=== PATIENT | female | born 1955 | race Caucasian/White ===

== ENCOUNTER 2018-12-04 11:36 | Day surgery (SDC) | payer MEDICARE ==
[2018-12-04] MEDS ORDERED: LIDOCAINE 2% MPF 5 ML VIAL ONE (11:55)
[2018-12-04] MEDS ORDERED: TETRACAINE HCL 0.5% 4ML OPTH ONE (11:56)
[2018-12-04] MEDS ORDERED: BUPIVACAINE 0.25% PF 10 ML VIAL ONE (11:56)
[2018-12-04] MEDS ORDERED: LIDOCAINE HCL/PF 3.5% OPTH GEL ONE (11:57)
[2018-12-04] MEDS: PHENYLEPHRINE 10% OPTH 5ML ONE ×3 (12:03→12:14)
[2018-12-04] MEDS: CYCLOPENTOLATE 1% OPTH 2 ML ONE ×3 (12:03→12:14)
[2018-12-04] MEDS ORDERED: NA CHLORIDE 0.9% 500 ML ONE (12:07)
[2018-12-04] MEDS ORDERED: NS 0.9% VIAL 10 ML ONE (12:17)
[2018-12-04] MEDS: BALANCED SALT IRRIG PLAIN 500 ML BTL IRR ONE ×2 (12:31→13:17)
[2018-12-04] MEDS: EPINEPHRINE/PF 1 MG/ML AMP ONE ×2 (12:31→13:17)
[2018-12-04] MEDS: LIDOCAINE 1% MPF 2 ML AMPULE ONE ×2 (12:31→13:17)
[2018-12-04] MEDS: DUOVISC 1 KIT OPTH ONE ×2 (12:32→13:40)
[2018-12-04] MEDS: MOXIFLOXACIN HCL 10 DROPS/ML **OR USE OPTH ONE ×2 (12:32→13:46)
[2018-12-04] MEDS ORDERED: MIDAZOLAM HCL 2 MG/2 ML INJ ONE ×2 (13:14→13:59)
--- NOTE | 2018-12-04 14:16 | P.BOP ---
Preoperative diagnosis: Nuclear sclerotic cataract, narrow angles with PAS OS Postoperative diagnosis: Same Primary procedure: Phacoemulsification with IOL OS Estimated blood loss: None Anesthesia: Local (Topical with anesthesia for cataract surgery) Complications: None Implants: ZCB00 +23.5 Transferred to: Other (Day surgery) Condition: Good
[2018-12-04 14:42] VITALS: BP 115/66; TEMP 98.2; O2SAT 98
--- NOTE | 2018-12-05 01:11 | OP ---
Date of Procedure: 12/04/2018 Surgeon: Sonia Morales MD Preoperative Diagnosis: Nuclear sclerotic cataract, narrow angle and peripheral anterior synechiae, left eye. Operation Performed: Phacoemulsification with intraocular lens implant, left eye. Anesthesia: Topical anesthesia with anesthesia per cataract surgery. Complications: None. Description Of Procedure: In the operating room the patient was prepped and draped in the usual ster ile fashion for ophthalmic surgery. A lid speculum was placed in the left eye. Two paracentesis sit es were made superiorly and inferiorly in the limbal cornea. Viscoat was placed in the anterior mehul swathi and a crescent blade was used to make a corneal groove and tunnel, and a keratome was used to ent er the anterior chamber. Provisc was placed in the anterior chamber and a 360 degree capsulotomy was performed with a cystitome. The lens was hydrodissected with BSS and rotated freely. The lens was removed with a stop and chop technique. 6.79 phaco CDE was used to remove the lens. Residual cortex was removed with the irrigation and aspiration. Provisc was placed in the capsular bag. A ZCB00 +2 3.5 lens was placed in the capsular bag without complications. Irrigation and aspiration was used to remove residual viscoelastic. The paracentesis sites were hydrated with BSS. The wound and paracen tesis sites were inspected and found to be watertight. Vigamox 0.07 cc was placed intracamerally at the end of the procedure. The eye was irrigated with balanced salt solution. The eye was patched wi th a soft cotton patch and Massey metal shield. The patient was returned to day surgery in good condition. Comments: Akten was placed in the eye in day surgery and irrigated out of the eye with BSS in the OR . Preservative-free 1% lidocaine was placed in the anterior chamber prior to Viscoat. One 10-0 nylo n suture was placed in the wound at the end of the procedure. Discharge Instructions: Ms. Chery is discharged to home in good condition and is to follow up leah Morales in the morning. SEAMUS/MODL Voice ID: [id number] Report ID: [id number]
== END 2018-12-04 14:25 | disposition home or self-care (01) ==
LOC: OR 11:36
PROVIDERS: ATTEND Ophthalmology Retina Specialist
PROC: 08RK3JZ Replacement of Left Lens with Synthetic Substitute, Percutaneous Approach (ICD-10-PCS; principal; 2018-12-04 11:30)
DX: H25.12 Age-related nuclear cataract, left eye (principal); H40.24 Residual stage of angle-closure glaucoma; E11.9 Type 2 diabetes mellitus without complications; E07.9 Disorder of thyroid, unspecified; I10 Essential (primary) hypertension; F32.9 Major depressive disorder, single episode, unspecified; Z79.84 Long term (current) use of oral hypoglycemic drugs; Z79.899 Other long term (current) drug therapy; Z86.19 Personal history of other infectious and parasitic diseases
CPT/HCPCS: 66984; 82962; J0171; J2250 ×2; J2001

== ENCOUNTER 2022-07-26 13:13 | Emergency (ER) | payer OTHER ==
--- OUTSIDE RECORDS SUMMARY | 2022-07-26 13:18 | XMS REPORT | Continuity of Care Document ---
:1955 Author Organization [facility] t Address [address] [place] [address] Care Team Providers Name Role Phone Joanne Tony Hawkins Primary Care Physician Elmer Pennington Attending Clinician Miley Hernandez MD Attending Clinician MILEY HERNANDEZ Attending Clinician Unavailable Doctor Unassigned, [place] Attending Clinician Unavailable Pob, [facility] Main Attending Clinician Unavailable Payers Payer Name Policy Type Policy Number Effective Date Expiration Date S ourtheodore Problems Condition Condition Condition Status Onset Resolution Last Treating Co mments Source Name Details Category Date Date Treatment Clinician Date Obesity Obesity Disease Active Univers (BMI (BMI 7-13 ity of 30-39.9) 30-39.9) 00:00: [place] 00 Medical Branch Closed Closed Disease Active Univers fracture fracture 7-13 ity of of left of left 00:00: [place] clavicle clavicle 00 Medica l Branch Lumbar Lumbar Disease Active Univers transverse transverse 7-13 it y of process process 00:00: [place] fracture, fracture, 00 Medi ambrose closed, closed, Branch initial initial encounter encounter Closed Closed Disease Active Univers fracture fracture 7-13 it[place] of of [place] rib [place] right of right 00 Medica l side side Branch Trauma Trauma Disease Active Univers 7-12 ity of 00:00: [place] [address] Medical Branch Allergies, Adverse Reactions, Alerts Allergy Allergy Status Severity Reaction(s) Onset Inactive Treating Comm ents Source Name Type Date Date Clinician HYDROCOD DRUG Active N/V Univers ONE INGREDI 7-12 ity of 00:00: [place] 00 Medical Branch SULFA Drug Active N/V Univers (SULFONA Class 7-12 ity of MIDE 00:00: [place] ANTIBIOT 00 Medical ICS) Branch Sulfa Propensi Active Nausea Univers (Sulfona ty to and/or 712 ity of mide adverse Vomiting 00:00: [place] Antibiot reaction 00 Medica l ics) s Branch Hydrocod Propensi Active Nausea Univer s one ty to and/or 7-12 ity of adverse Vomiting 00:00: [place] reaction 00 Medical s Branch Sulfa Propensi Active Nausea Univers (Sulfona ty to and/or 12 ity of mide adverse Vomiting 00:00: [place] Antibiot reaction 00 Medica l ics) s Branch Social History Social Habit Start Date Stop Date Quantity Comments Source Exposure to Not sure [facility] SARS-CoV-2 [facility] (event) [place] Tobacco use and 2017-01-26 2017-01-26 Smokeless tobacco Un iversity of exposure 00:00:00 00:00:00 non-user [facility] Sex Assigned At [birth year] Universit y of 00:00:00 00:00:00 [facility] Smoking Status Start Date Stop Date Source Never smoked tobacco [facility] Medications Ordered Filled Start Stop Current Ordering Indication Dosage Frequency Signature Comments Components Source Medication Medication Date Date Medication? Clinician (SIG) Name Name DICLOFENAC Yes [id number] TAKE 1 Univers 75 mg EC 8-11 TABLET BY ity of tablet 00:00: MOUTH 00 TWICE Medical DAILY WITH Branch MEALS DICLOFENAC 0 Yes [id number] TAKE 1 Univers 75 mg EC 5-31 TABLET BY ity of tablet 00:00: MOUTH 00 TWICE Medical DAILY WITH Branch MEALS DICLOFENAC 2021- No [id number] TAKE 1 Univers 75 mg EC 5-31 08-11 TABLET BY ity o f tablet 00:00: 00:00 MOUTH [place] 00 :00 TWICE Medical DAILY WITH Branch MEALS DICLOFENAC 2021-0 Yes [id number] TAKE 1 Univers 75 mg EC 4-12 TABLET BY ity of tablet 00:00: MOUTH [place] 00 TWICE Medical DAILY WITH Branch MEALS DICLOFENAC 2021- No [id number] TAKE 1 Univers 75 mg EC 4-12 05-31 TABLET BY ity o f tablet 00:00: 00:00 MOUTH [place] 00 :00 TWICE Medical DAILY WITH Branch MEALS diclofenac 2020-07 Yes 75mg Take 1 Unive rs 75 mg EC 2-07 tablet by ity of tablet 00:00: mouth 2 [place] (two) Medical times Branch daily with meals. diclofenac 2020-07 Yes 75mg Take 1 Unive rs 75 mg EC 2-07 tablet by ity of tablet 00:00: mouth 2 [place] (two) Medical times Branch daily with meals. diclofenac 2020-07- No 75mg Take 1 Univ ers 75 mg EC 2- 04-12 tablet by ity o f tablet 00:00: 00:00 mouth 2 [place] 00 :00 (two) Medical times Branch daily with meals. rosuvastati Yes 10mg Take 10 mg Univers n (CRESTOR) 7-13 by mouth ity of 10 mg 17:19: at [place] [address] bedtime. Medical Branch POTASSIUM-9 Yes 10mg Take 10 mg Univers 9 ORAL 7-13 by mouth ity of 17:19: daily. [address] Branch FEXOFENADIN Yes 10mg Take 10 mg Univers E HCL 7-13 by mouth ity of (PAGE 17:19: daily. [place] [address] Medical Branch metFORMIN Yes 850mg Take 850 Uni vers 850 mg 7-13 mg by ity of tablet 17:19: mouth 2 [place] [address] (two) Medical times Branch daily with meals. glipiZIDE Yes 10mg Take 10 mg Un esther 10 mg 7-13 by mouth 2 ity of tablet 17:19: (two) [place] [address] times Medical daily Branch before breakfast and dinner. Levothyroxi Yes Take by Uni vers ne 50 mcg 7-13 mouth. ity of capsule 17:19: [place] [address] Medical Branch furosemide Yes 20mg Take 20 mg U nivers 20 mg 7-13 by mouth ity of tablet 17:19: as needed. [address] Branch ENALAPRIL-H Yes 10mg Take 10-25 Univers YDROCHLOROT 7-13 mg by ity of HIAZIDE 17:19: mouth [place] ORAL 02 daily. Medical Branch amitriptyli Yes 50mg Take 50 mg Univers ne 50 mg 7-13 by mouth ity of tablet 17:19: daily. Medical Branch rosuvastati Yes 10mg Take 10 mg Univers n (CRESTOR) 7-13 by mouth ity of 10 mg 17:19: at [place] tablet 02 bedtime. Medical Branch POTASSIUM-9 Yes 10mg Take 10 mg Univers 9 ORAL 7-13 by mouth ity of 17:19: daily. Medical Branch FEXOFENADIN Yes 10mg Take 10 mg Univers E HCL 7-13 by mouth ity of (PAGE 17:19: daily. [place] [address] Medical Branch metFORMIN Yes 850mg Take 850 Uni vers 850 mg 7-13 mg by ity of tablet 17:19: mouth 2 (two) Medical times Branch daily with meals. glipiZIDE Yes 10mg Take 10 mg Un esther 10 mg 7-13 by mouth 2 ity of tablet 17:19: (two) [place] [address] times Medical daily Branch before breakfast and dinner. Levothyroxi Yes Take by Uni vers ne 50 mcg 7-13 mouth. ity of capsule 17:19: [place] Medical Branch furosemide Yes 20mg Take 20 mg U nivers 20 mg 7-13 by mouth ity of tablet 17:19: as needed. [place] Medical Branch ENALAPRIL-H Yes 10mg Take 10-25 Univers YDROCHLOROT 7-13 mg by ity of HIAZIDE 17:19: mouth [place] ORAL 02 daily. Medical Branch amitriptyli Yes 50mg Take 50 mg Univers ne 50 mg 7-13 by mouth ity of tablet 17:19: daily. Medical Branch rosuvastati Yes 10mg Take 10 mg Univers n (CRESTOR) 7-13 by mouth ity of 10 mg 17:19: at [place] tablet 02 bedtime. Medical Branch POTASSIUM-9 Yes 10mg Take 10 mg Univers 9 ORAL 7-13 by mouth ity of 17:19: daily. Medical Branch FEXOFENADIN Yes 10mg Take 10 mg Univers E HCL 7-13 by mouth ity of (PAGE 17:19: daily. [place] ORAL) 02 Medical Branch metFORMIN Yes 850mg Take 850 Uni vers 850 mg 7-13 mg by ity of tablet 17:19: mouth 2 [place] (two) Medical times Branch daily with meals. glipiZIDE Yes 10mg Take 10 mg Un esther 10 mg 7-13 by mouth 2 ity of tablet 17:19: (two) [place] [address] times Medical daily Branch before breakfast and dinner. Levothyroxi Yes Take by Uni vers ne 50 mcg 7-13 mouth. ity of capsule 17:19: [place] [address] Medical Branch furosemide Yes 20mg Take 20 mg U nivers 20 mg 7-13 by mouth ity of tablet 17:19: as needed. [place] [address] Medical Branch ENALAPRIL-H Yes 10mg Take 10-25 Univers YDROCHLOROT 7-13 mg by ity of HIAZIDE 17:19: mouth [place] ORAL 02 daily. Medical Branch amitriptyli Yes 50mg Take 50 mg Univers ne 50 mg 7-13 by mouth ity of tablet 17:19: daily. [place] [address] Medical Branch rosuvastati Yes 10mg Take 10 mg Univers n (CRESTOR) 7-13 by mouth ity of 10 mg 17:19: at [place] tablet 02 bedtime. Medical Branch POTASSIUM-9 Yes 10mg Take 10 mg Univers 9 ORAL 7-13 by mouth ity of 17:19: daily. [place] [address] Medical Branch FEXOFENADIN Yes 10mg Take 10 mg Univers E HCL 7-13 by mouth ity of (PAGE 17:19: daily. [place] ORAL) Medical Branch metFORMIN Yes 850mg Take 850 Uni vers 850 mg 7-13 mg by ity of tablet 17:19: mouth 2 [place] (two) Medical times Branch daily with meals. glipiZIDE Yes 10mg Take 10 mg Un esther 10 mg 7-13 by mouth 2 ity of tablet 17:19: (two) [place] [address] times Medical daily Branch before breakfast and dinner. Levothyroxi Yes Take by Uni vers ne 50 mcg 7-13 mouth. ity of capsule 17:19: [place] [address] Medical Branch furosemide Yes 20mg Take 20 mg U nivers 20 mg 7-13 by mouth ity of tablet 17:19: as needed. Medical Branch ENALAPRIL-H Yes 10mg Take 10-25 Univers YDROCHLOROT 7-13 mg by ity of HIAZIDE 17:19: mouth [place] ORAL 02 daily. Medical Branch amitriptyli Yes 50mg Take 50 mg Univers ne 50 mg 7-13 by mouth ity of tablet 17:19: daily. Medical Branch rosuvastati Yes 10mg Take 10 mg Univers n (CRESTOR) 7-13 by mouth ity of 10 mg 17:19: at [place] tablet 02 bedtime. Medical Branch POTASSIUM-9 Yes 10mg Take 10 mg Univers 9 ORAL 7-13 by mouth ity of 17:19: daily. Medical Branch FEXOFENADIN Yes 10mg Take 10 mg Univers E HCL 7-13 by mouth ity of (PAGE 17:19: daily. [facility]) Medical Branch metFORMIN Yes 850mg Take 850 Uni vers 850 mg 7-13 mg by ity of tablet 17:19: mouth 2 [place] [address] (two) Medical times Branch daily with meals. glipiZIDE Yes 10mg Take 10 mg Un esther 10 mg 7-13 by mouth 2 ity of tablet 17:19: (two) [place] [address] times Medical daily Branch before breakfast and dinner. Levothyroxi Yes Take by Uni vers ne 50 mcg 7-13 mouth. ity of capsule 17:19: Medical Branch furosemide Yes 20mg Take 20 mg U nivers 20 mg 7-13 by mouth ity of tablet 17:19: as needed. Medical Branch ENALAPRIL-H Yes 10mg Take 10-25 Univers YDROCHLOROT 7-13 mg by ity of HIAZIDE 17:19: mouth [place] ORAL 02 daily. Medical Branch amitriptyli Yes 50mg Take 50 mg Univers ne 50 mg 7-13 by mouth ity of tablet 17:19: daily. Medical Branch rosuvastati Yes 10mg Take 10 mg Univers n (CRESTOR) 7-13 by mouth ity of 10 mg 17:19: at [place] tablet 02 bedtime. Medical Branch POTASSIUM-9 Yes 10mg Take 10 mg Univers 9 ORAL 7-13 by mouth ity of 17:19: daily. [place] Medical Branch FEXOFENADIN Yes 10mg Take 10 mg Univers E HCL 7-13 by mouth ity of (PAGE 17:19: daily. [place] ORAL) Medical Branch metFORMIN Yes 850mg Take 850 Uni vers 850 mg 7-13 mg by ity of tablet 17:19: mouth 2 (two) Medical times Branch daily with meals. glipiZIDE Yes 10mg Take 10 mg Un esther 10 mg 7-13 by mouth 2 ity of tablet 17:19: (two) [place] times Medical daily Branch before breakfast and dinner. Levothyroxi Yes Take by Uni vers ne 50 mcg 7-13 mouth. ity of capsule 17:19: [place] [address] Medical Branch furosemide Yes 20mg Take 20 mg U nivers 20 mg 7-13 by mouth ity of tablet 17:19: as needed. [place] [address] Medical Branch ENALAPRIL-H Yes 10mg Take 10-25 Univers YDROCHLOROT 7-13 mg by ity of HIAZIDE 17:19: mouth [place] ORAL 02 daily. Medical Branch amitriptyli Yes 50mg Take 50 mg Univers ne 50 mg 7-13 by mouth ity of tablet 17:19: daily. [place] [address] Medical Branch rosuvastati Yes 10mg Take 10 mg Univers n (CRESTOR) 7-13 by mouth ity of 10 mg 17:19: at [place] tablet 02 bedtime. Medical Branch POTASSIUM-9 Yes 10mg Take 10 mg Univers 9 ORAL 7-13 by mouth ity of 17:19: daily. [place] [address] Medical Branch FEXOFENADIN Yes 10mg Take 10 mg Univers E HCL 7-13 by mouth ity of (PAGE 17:19: daily. [place] ORAL) Medical Branch metFORMIN Yes 850mg Take 850 Uni vers 850 mg 7-13 mg by ity of tablet 17:19: mouth 2 [place] (two) Medical times Branch daily with meals. glipiZIDE Yes 10mg Take 10 mg Un esther 10 mg 7-13 by mouth 2 ity of tablet 17:19: (two) [place] [address] times Medical daily Branch before breakfast and dinner. Levothyroxi Yes Take by Uni vers ne 50 mcg 7-13 mouth. ity of capsule 17:19: Medical Branch furosemide Yes 20mg Take 20 mg U nivers 20 mg 7-13 by mouth ity of tablet 17:19: as needed. Medical Branch ENALAPRIL-H Yes 10mg Take 10-25 Univers YDROCHLOROT 7-13 mg by ity of HIAZIDE 17:19: mouth [place] ORAL 02 daily. Medical Branch amitriptyli Yes 50mg Take 50 mg Univers ne 50 mg 7-13 by mouth ity of tablet 17:19: daily. Medical Branch rosuvastati Yes 10mg Take 10 mg Univers n (CRESTOR) 7-13 by mouth ity of 10 mg 17:19: at [place] tablet 02 bedtime. Medical Branch POTASSIUM-9 Yes 10mg Take 10 mg Univers 9 ORAL 7-13 by mouth ity of 17:19: daily. Medical Branch FEXOFENADIN Yes 10mg Take 10 mg Univers E HCL 7-13 by mouth ity of (PAGE 17:19: daily. [facility]) Medical Branch metFORMIN Yes 850mg Take 850 Uni vers 850 mg 7-13 mg by ity of tablet 17:19: mouth 2 (two) Medical times Branch daily with meals. glipiZIDE Yes 10mg Take 10 mg Un esther 10 mg 7-13 by mouth 2 ity of tablet 17:19: (two) [place] [address] times Medical daily Branch before breakfast and dinner. Levothyroxi Yes Take by Uni vers ne 50 mcg 7-13 mouth. ity of capsule 17:19: Medical Branch furosemide Yes 20mg Take 20 mg U nivers 20 mg 7-13 by mouth ity of tablet 17:19: as needed. Medical Branch ENALAPRIL-H Yes 10mg Take 10-25 Univers YDROCHLOROT 7-13 mg by ity of HIAZIDE 17:19: mouth [place] ORAL 02 daily. Medical Branch amitriptyli Yes 50mg Take 50 mg Univers ne 50 mg 7-13 by mouth ity of tablet 17:19: daily. [place] [address] Medical Branch Immunizations Ordered Filled Immunization Date Status Comments Sourc e Immunization Name Name SARS-COV-2 COVID-19 2020-12-01 Completed Unive rsity of MODERNA VACCINE 00:00:00 [place] Med ical Branch SARS-COV-2 COVID-19 2020-12-01 Completed Unive rsity of MODERNA VACCINE 00:00:00 [place] Med ical Branch SARS-COV-2 COVID-19 2020-12-01 Completed Unive rsity of MODERNA VACCINE 00:00:00 [place] Med ical Branch SARS-COV-2 COVID-19 2020-12-01 Completed Unive rsity of MODERNA VACCINE 00:00:00 [place] Med ical Branch SARS-COV-2 COVID-19 2020-12-01 Completed Unive rsity of MODERNA VACCINE 00:00:00 [place] Med ical Branch SARS-COV-2 COVID-19 2020-12-01 Completed Unive rsity of MODERNA VACCINE 00:00:00 [place] Med ical Branch SARS-COV-2 COVID-19 2020-12-01 Completed Unive rsity of MODERNA VACCINE 00:00:00 [place] Med ical Branch SARS-COV-2 COVID-19 2020-12-01 Completed Unive rsity of MODERNA VACCINE 00:00:00 [place] Med ical Branch SARS-COV-2 COVID-19 2020-11-03 Completed Unive rsity of MODERNA VACCINE 00:00:00 [place] Med ical Branch SARS-COV-2 COVID-19 2020-11-03 Completed Unive rsity of MODERNA VACCINE 00:00:00 [place] Med ical Branch SARS-COV-2 COVID-19 2020-11-03 Completed Unive rsity of MODERNA VACCINE 00:00:00 [place] Med ical Branch SARS-COV-2 COVID-19 2020-11-03 Completed Unive rsity of MODERNA VACCINE 00:00:00 [place] Med ical Branch SARS-COV-2 COVID-19 2020-11-03 Completed Unive rsity of MODERNA VACCINE 00:00:00 [place] Med ical Branch SARS-COV-2 COVID-19 2020-11-03 Completed Unive rsity of MODERNA VACCINE 00:00:00 [place] Med ical Branch SARS-COV-2 COVID-19 2020-11-03 Completed Unive rsity of MODERNA VACCINE 00:00:00 [facility] [place] SARS-COV-2 COVID-19 2020-11-03 Completed Unive rsity of MODERNA VACCINE 00:00:00 [facility] Vital Signs Vital Name Observation Time Observation Value Comments Source Systolic blood 2021-06-17 19:51:00 141 mm[Hg] Univer sity of [place] pressure [facility] Diastolic blood 2021-06-17 19:51:00 73 mm[Hg] Unive rsity of [facility] [place] Heart rate 2021-06-17 19:51:00 84 /min [facility] Body height 2021-06-17 19:50:00 149.9 cm [facility] Body weight 2021-06-17 19:50:00 89.948 kg [facility] BMI 2021-06-17 19:50:00 40.05 kg/m2 [facility] Procedures Procedure Date / Time Performing Clinician Source Performed NON [facility] 2021-06-03 06:01:00 Doctor Unassigned, No [facility] [place] DOC[facility] Name [facility] DSU PRE-OP 2021-06-01 06:01:00 [facility]assigned, [facility] [place] Encounters Start End Encounter Admission Attending Care Care Encounter Source Date/Time Date/Time Type Type Clinicians Facility Department ID 2022-02-24 2022-02-24 DION Faulkner [id number] Univers 00:00:00 00:00:00 Elmer S [facility] [id number] it y of [place] [id number] Raúl as TALIA?BLEA [id number] [address] MEDICAL OFFICE BUILDING 2021-12-11 2021-12-11 Nayana Paniagua MOTHOMAS [id number] Univers 00:00:00 00:00:00 Elmer S HEALTH [id number] it y of [place] [id number] Raúl as TALIA?BLEA [id number] [address] MEDICAL OFFICE BUILDING 2021-10-27 2021-10-27 Nayana Hernandez MOTHOMAS [id number] Univers 00:00:00 00:00:00 Miley Gilmore HEALTH [id number] it y of [place] [id number] Raúl as TALIA?BLEA [id number] Id evan NGUYEN [address] [place] [address] MEDICAL OFFICE [facility] 2021-06-19 2021-06-[address] [facility] [id number] Univers 00:00:00 00:00:00 Miley GRIFFITHS [id number] it y of [place] [id number] Raúl as TALIA?BLEA [id number] Id evan NGUYEN [address] [place] [address] MEDICAL OFFICE [facility] 2021-06-17 2021-06-17 [facility] [id number] Univers 14:00:00 14:17:46 MILEY tapia [facility] [place] [facility] 2021-06-17 2021-06-[address] [facility] [id number] Univers 13:39:14 14:17:46 Visit Miley GRIFFITHS [id number] it y of [place] [id number] Raúl as TALIA?BLEA [id number] Id evan NGUYEN [address] [place] [address] OFFICE [facility] 2021-06-17 2021-06-17 [facility] [id number] Univers 14:00:00 14:00:00 MILEY tapia [facility] [place] [facility] 2021-06-04 2021-06-[address] [facility] [id number] Univers 00:00:00 00:00:00 Miley GRIFFITHS [id number] it y of [place] [id number] Raúl as TALIA?BLEA [id number] Id evan NGUYEN [address] [place] [address] MEDICAL OFFICE [facility] 2021-06-03 2021-06-03 Hospital Tayo [facility] [id number] Univers 11:41:00 23:59:00 Encounter Miley STUBBSANN [id number] [place] [id number] [address] 2021-06-03 2021-06-03 Outpatient [facility] NUT [id number] Univers 00:00:00 23:59:00 MILEY ity of [facility] 2021-06-03 2021-06-03 Orders Doctor MILES [id number] Univers 00:00:00 00:00:00 Only Unassigned, JETT [id number] ity of [place] [facility] 4.2.7.2.686 Raúl as [phone] [facility] 009 [place] 2021-06-01 2021-06-01 Orders Doctor MILES 1.2.840.114 [id number] Univers 00:00:00 00:00:00 Only Unassigned, JETT 350.1.13.10 ity of [place] [facility] [id number] Raúl as [id number] [facility] 009 [place] 2021-05-29 2021-05-29 Jerrod [facility] [id number] Univers 00:00:00 00:00:00 [facility] [id number] it y of [place] 4.2.7.2.686 Raúl as TALIA?BLEA [id number] Id dical KNEY [address] [place] MEDICAL OFFICE BUILDING 2021-05-27 2021-05-[address] [facility] 1.2.840.114 [id number] Univers 10:45:00 23:59:00 Encounter Miley ELLER [id number] ity of [place].[address] [place] [address] [id number] [facility] 807 [place] 2021-05-27 2021-05-27 [employer] Yvon, Lasha Lab Main [facility] [id number] Univers 10:48:00 11:03:00 Visit Miley Hernandez [id number] ity of [place].2.7.2.686 [place] [facility] [id number] Id evan BOSCH 353 Branch BUILDING 2021-05-27 2021-05-27 Outpatient [facility] [id number] Univers 10:47:25 10:44:00 MILEY dasjesse of [facility] 2021-05-27 2021-05-27 [facility] [id number] [id number] Univers 09:15:00 10:44:00 Encounter Miley LELER [id number] ity of [place].2.[address] [place] [address] [id number] 2021-05-27 2021-05-[address] [facility] 1.2.840.114 [id number] Univers 00:00:00 00:00:00 Miley Gilmore HEALTH [id number] it y of [place] 4.2.7.2.686 Raúl as TALIA?BLEA [id number] Id evan NGUYEN [address] [place] MEDICAL OFFICE [facility] 2021-05-27 2021-05-[address] [facility] 1.2.840.114 [id number] Univers 00:00:00 00:00:00 Miley Gilmore HEALTH [id number] it y of [place] 4.2.7.2.686 Raúl as TALIA?BLEA [id number] Id evan NGUYEN [address] [place] MEDICAL OFFICE [facility] 2021-05-21 2021-05-[address] [facility] 1.2.840.114 [id number] Univers 00:00:00 00:00:00 Miley GRIFFITHS 350.1.13.10 it y of [place] 4.2.7.2.686 Raúl as TALIA?BLEA [id number] Id evan NGUYEN [address] [place] MEDICAL OFFICE [facility] 2021-05-20 2021-05-20 Outpatient R [facility] [id number] Univers 15:20:00 23:59:00 MILEY tapia [facility] 2021-05-20 2021-05-20 [facility] [id number] Univers 15:20:00 23:59:00 Encounter Miley GRIFFITHS 350.1.13.10 ity of [place] 4.2.7.2.686 Raúl as TALIA?BLEA [id number] Id evan NGUYEN [address] [place] MEDICAL OFFICE [facility] 2021-05-20 2021-05-20 Office Tayo [facility] [id number] Univers 14:56:18 16:13:38 Visit Miley [facility] 350.1.13.10 it y of [place] 4.2.7.2.686 Raúl as TALIA?BLEA [id number] Id [address] MEDICAL OFFICE BUILDING 2021-05-20 2021-05-20 Out[facility] [id number] Univers 15:20:00 15:20:00 MILEY tapia [facility] 2021-05-12 2021-05-12 Orders Doctor MILES [id number] [id number] Univers 00:00:00 00:00:00 Only Unassigned, JETT 350.1.13.10 ity of [place] [facility] 4.2.7.2.686 Raúl as [id number] [address] Results This patient has no known results.
--- NOTE | 2022-07-26 14:51 | EDPHYS ---
Physician Documentation [facility] Name: Kandace Chery Age: 67 yrs Sex: Female : 1955 Arrival Date: 07/26/2022 Time: 13:15 Bed 13 Private MD: ED Physician Daryl Childers HPI: 07/26 14:34 This 67 yrs old Female presents to ER via Ambulatory with complaints of Knee olvin Pain. 14:34 This 67 yrs old Female presents to ER via Ambulatory with complaints of Knee olvin Pain. 14:34 This 67 yrs old Female presents to ER via Ambulatory with complaints of Knee olvin Pain. 14:34 The patient presents with decreased range of motion. The complaints affect the right olvin knee. Context: The problem was sustained on a street or driveway. Onset: The symptoms/episode began/occurred 10 day(s) ago. Modifying factors: The symptoms are alleviated by elevating leg, remaining still, the symptoms are aggravated by movement, bending knee. Associated signs and symptoms: The patient has no apparent associated signs or symptoms. Treatment prior to arrival includes: no previous treatment. Severity of symptoms: At their worst the symptoms were mild, moderate, in the emergency department the symptoms have resolved. The patient has not experienced similar symptoms in the past. Historical: - Allergies: 13:23 Sulfa (Sulfonamide Antibiotics); iw 13:23 Hydrocodone-Acetaminophen; iw - PMHx: 13:23 Diabetes mellitus; kidney disease; Cirrhosis of liver; Hypertensive disorder; iw - PSHx: 13:23 right knee; hysterectomy; Cholecystectomy; iw - Immunization history:: Adult Immunizations. - Social history:: Smoking status: Patient denies any tobacco usage or history of. - Family history:: not pertinent. ROS: 14:34 Constitutional: Negative for fever, chills, and weight loss, Eyes: Negative for injury, olvin pain, redness, and discharge, ENT: Negative for injury, pain, and discharge, Neck: Negative for injury, pain, and swelling, Cardiovascular: Negative for chest pain, palpitations, and edema, Respiratory: Negative for shortness of breath, cough, wheezing, and pleuritic chest pain, Abdomen/GI: Negative for abdominal pain, nausea, vomiting, diarrhea, and constipation, Back: Negative for injury and pain, : Negative for injury, bleeding, discharge, and swelling, Skin: Negative for injury, rash, and discoloration, Neuro: Negative for headache, weakness, numbness, tingling, and seizure, Psych: Negative for depression, anxiety, suicide ideation, homicidal ideation, and hallucinations, Allergy/Immunology: Negative for hives, rash, and allergies, Endocrine: Negative for neck swelling, polydipsia, polyuria, polyphagia, and marked weight changes, Hematologic/Lymphatic: Negative for swollen nodes, abnormal bleeding, and unusual bruising. 14:34 MS/extremity: Positive for injury or acute deformity, pain, of the right knee. Exam: 14:34 Constitutional: This is a well developed, well nourished patient who is awake, alert, olvin and in no acute distress. Head/Face: Normocephalic, atraumatic. Eyes: Pupils equal round and reactive to light, extra-ocular motions intact. Lids and lashes normal. Conjunctiva and sclera are non-icteric and not injected. Cornea within normal limits. Periorbital areas with no swelling, redness, or edema. ENT: Nares patent. No nasal discharge, no septal abnormalities noted. Tympanic membranes are normal and external auditory canals are clear. Oropharynx with no redness, swelling, or masses, exudates, or evidence of obstruction, uvula midline. Mucous membranes moist. Neck: Trachea midline, no thyromegaly or masses palpated, and no cervical lymphadenopathy. Supple, full range of motion without nuchal rigidity, or vertebral point tenderness. No Meningismus. Chest/axilla: Normal chest wall appearance and motion. Nontender with no deformity. No lesions are appreciated. Cardiovascular: Regular rate and rhythm with a normal S1 and S2. No gallops, murmurs, or rubs. Normal PMI, no JVD. No pulse deficits. Respiratory: Lungs have equal breath sounds bilaterally, clear to auscultation and percussion. No rales, rhonchi or wheezes noted. No increased work of breathing, no retractions or nasal flaring. Abdomen/GI: Soft, non-tender, with normal bowel sounds. No distension or tympany. No guarding or rebound. No evidence of tenderness throughout. Back: No spinal tenderness. No costovertebral tenderness. Full range of motion. Skin: Warm, dry with normal turgor. Normal color with no rashes, no lesions, and no evidence of cellulitis. Neuro: Awake and alert, GCS 15, oriented to person, place, time, and situation. Cranial nerves II-XII grossly intact. Motor strength 5/5 in all extremities. Sensory grossly intact. Cerebellar exam normal. Normal gait. Psych: Awake, alert, with orientation to person, place and time. Behavior, mood, and affect are within normal limits. 14:34 Musculoskeletal/extremity: ROM: limited active range of motion due to pain, limited passive range of motion due to pain, in the right knee, Circulation is intact in all extremities. Sensation intact. Compartment Syndrome exam of affected extremity: is normal. Joints: All joints are normal except limited range of motion, pain at rest, painful range of motion, Weight bearing: able to fully bear weight, without difficulty, DVT Exam: negative Homans' sign noted on exam, no appreciated bluish discoloration, no erythema, no increased warmth, pain, swelling, tenderness. Vital Signs: 13:22 BP 138 / 100; Pulse 87; Resp 16; Temp 97.6; Pulse Ox 100% on R/A; Weight 83.91 kg; iw Height 4 ft. 11 in. (149.86 cm); Pain 8/10; 13:33 BP 138 / 71; Pulse 80; Resp 18; Temp 97.8; Pulse Ox 98% ; Weight 83.91 kg; Height 4 ft. ls5 11 in. (149.86 cm); Pain 8/10; 13:33 Body Mass Index 37.37 (83.91 kg, 149.86 cm) ls5 MDM: 13:27 Patient medically screened. [facility] 14:48 Differential diagnosis: dislocation, closed fracture, contusion, tendonitis. Data [facility] reviewed: vital signs, nurses notes, radiologic studies. Consideration of Admission/Observation Patient was admitted/placed on observation. Escalation of care including admission/observation considered. Management of patient was discussed with the following: Primary Care Provider: ORTHO. I considered the following discharge prescriptions or medication management in the emergency department Medications were administered in the Emergency Department. See MAR. Independent interpretation of the following test(s) in the Emergency Department X-Ray: My interpretation is NO FX. Care significantly affected by the following chronic conditions: Diabetes, Hypertension, Obesity, Liver Disease. 07/26 13:54 Order name: Knee Right 3 View XRAY [facility] 07/26 13:54 Order name: Ice pack; Complete Time: 14:08 olvin 07/26 14:30 Order name: Knee Immobilizer; Complete Time: 16:16 olvin Administered Medications: No medications were administered Disposition Summary: 07/26/22 14:50 Discharge Ordered Location: Home olvin Problem: new olvin Symptoms: have improved olvin Condition: Stable olvin Diagnosis - Fall on same level, unspecified olvin - Contusion of right knee olvin Followup: olvin - With: Private Physician - When: 2 - 3 days - Reason: Recheck today's complaints, Continuance of care, Re-evaluation by your physician Followup: olvin - With: Milton Harp MD - When: 2 - 3 days - Reason: Recheck today's complaints, Continuance of care, Re-evaluation by your physician Discharge Instructions: - Discharge Summary Sheet olvin - Contusion olvin - Fall Prevention in the Home, Adult olvin - Knee Effusion olvin - Acute Knee Pain, Adult olvin - Acute Knee Pain, Adult, [id number] olvin Forms: - Medication Reconciliation Form olvin - Thank You Letter olvin - Antibiotic Education olvin - Prescription Opioid Use [facility] Prescriptions: - Tramadol 50 mg Oral Tablet - take 3 tablet by ORAL route every 8 hours as needed; 24 tablet; Refills: 0, olvin Product Selection Permitted Signatures: Dispatcher [employer] Daryl Richards MD MD cha Williams, Irene RN RN iw
--- NOTE | 2022-07-26 14:51 | ER ---
Nurse's Notes [facility] Name: Kandace Chery Age: 67 yrs Sex: Female : 1955 Arrival Date: 07/26/2022 Time: 13:15 Bed 13 Private MD: Diagnosis: Fall on same level, unspecified;Contusion of right knee Presentation: 07/26 13:22 Chief complaint: Patient states: fell out of the car, got tangled in my purse, fell iw onto right knee, happened jul 17 , not feeling better, has pain from knee to ankle. Coronavirus screen: At this time, the client does not indicate any symptoms associated with coronavirus-19. Ebola Screen: Patient negative for fever greater than or equal to 101.5 degrees Fahrenheit, and additional compatible Ebola Virus Disease symptoms Patient denies exposure to infectious person. Patient denies travel to an Ebola-affected area in the 21 days before illness onset. No symptoms or risks identified at this time. Initial Sepsis Screen: Does the patient meet any 2 criteria? No. Patient's initial sepsis screen is negative. Does the patient have a suspected source of infection? No. Patient's initial sepsis screen is negative. Risk Assessment: Do you want to hurt yourself or someone else? Patient reports no desire to harm self or others. Onset of symptoms was July 17, 2022. 13:22 Method Of Arrival: Ambulatory iw 13:22 Acuity: SHAILA 4 iw Historical: - Allergies: 13:23 Sulfa (Sulfonamide Antibiotics); iw 13:23 Hydrocodone-Acetaminophen; iw - PMHx: 13:23 Diabetes mellitus; kidney disease; Cirrhosis of liver; Hypertensive disorder; iw - PSHx: 13:23 right knee; hysterectomy; Cholecystectomy; iw - Immunization history:: Adult Immunizations. - Social history:: Smoking status: Patient denies any tobacco usage or history of. - Family history:: not pertinent. Screenin:30 [place] ED Fall Risk Assessment (Adult) History of falling in the last 3 months, ko1 including since admission Yes- single mechanical fall (1 pt) Confusion or Disorientation No (0 pts) Intoxicated or Sedated No (0 pts) Impaired Gait No (0 pts) Mobility Assist Device Used No (0 pt) Altered Elimination No (0 pt) Score/Fall Risk Level 3 or more points = High Risk Oriented to surroundings, Maintained a safe environment, Educated pt \T\ family on fall prevention, incl call for assistance when getting out of bed, Assessed \T\ reinforced patient's understanding of fall precautions, Provided non-skid footwear, Hourly rounding (assess needs \T\ fall precautionary measures) done, Used ambulatory aids as needed (educated on \T\ assisted with), Used gait belt as appropriate Implemented a Fall Risk Plan of Care, Apply high fall risk patient identification: yellow non skid footwear/ fall signage, Remained w/in arm's length of patient and in sight while toileting, Offered frequent toileting (1:1 observation), Remained with patient while ambulating, Utilized family, sitter, or virtual splicing machine operator as indicated. Abuse screen: Denies threats or abuse. Denies injuries from another. Nutritional screening: No deficits noted. Tuberculosis screening: No symptoms or risk factors identified. Assessment: 13:30 General: Appears in no apparent distress. uncomfortable, Behavior is calm, cooperative, ko1 appropriate for age. Pain: Complains of pain in right leg and right knee. Neuro: No deficits noted. Cardiovascular: No deficits noted. Respiratory: No deficits noted. GI: No deficits noted. : No deficits noted. EENT: No deficits noted. Derm: No deficits noted. Musculoskeletal: No deficits noted. Injury Description: fall out of parked car on . Vital Signs: 13:22 BP 138 / 100; Pulse 87; Resp 16; Temp 97.6; Pulse Ox 100% on R/A; Weight 83.91 kg; iw Height 4 ft. 11 in. (149.86 cm); Pain 8/10; 13:33 BP 138 / 71; Pulse 80; Resp 18; Temp 97.8; Pulse Ox 98% ; Weight 83.91 kg; Height 4 ft. ls5 11 in. (149.86 cm); Pain 8/10; 13:33 Body Mass Index 37.37 (83.91 kg, 149.86 cm) ls5 ED Course: 13:15 Patient arrived in ED. rg4 13:22 [facility]C [facility] snw 13:22 Daryl Childers MD is Attending Physician. snw 13:23 Triage completed. iw 13:25 Arm band placed on. iw 13:27 Abigail Scott, RN is Primary Nurse. ko1 13:30 Patient has correct armband on for positive identification. Fall risk band placed. Bed ko1 in low position. Call light in reach. Pulse ox on. NIBP on. 13:30 No provider procedures requiring assistance completed. Patient did not have IV access ko1 during this emergency room visit. 14:49 Milton Harp MD is Referral Physician. [facility] 15:25 Knee Right 3 View XRAY In Process Unspecified. EDMS 15:30 Knee immobilizer applied on right knee. ko1 Administered Medications: No medications were administered Medication: 13:30 VIS not applicable for this client. ko1 Outcome: 14:50 Discharge ordered by MD. [facility] 16:15 Discharged to home ambulatory. ko1 16:15 Condition: stable 16:15 Discharge instructions given to patient, Instructed on discharge instructions, follow up and referral plans. Demonstrated understanding of instructions, follow-up care, medications, Prescriptions given X 1. 16:16 Patient left the ED. ko1 Signatures: Dispatcher [employer] EDPR Daryl Childers MD MD cha Waters, Shelly, VETERINARY INSPECTOR-C VETERINARY INSPECTOR-Csnw Symone Galvan, RN RN Aniya Munguia rg4 Abigail Scott, RN RN ko1 Juan M Castillo ls5
--- NOTE | 2022-07-26 15:39 | RAD REPORT ---
EXAM DESCRIPTION: RAD - Knee Right 3 View - 07/26/2022 3:23 pm CLINICAL HISTORY: PAIN COMPARISON: Knee Right 2 View dated 04/13/2021 FINDINGS: Osteoarthritis is present, greatest in the medial joint compartment where is moderately se joseph. No evidence of acute fracture or dislocation. Small amount of suprapatellar joint fluid noted.
[2022-07-26 18:36] VITALS: BP 138/71; TEMP 97.8; O2SAT 98
== END 2022-07-26 16:16 | disposition home or self-care (01) ==
LOC: ER 13:13
DX: S80.01XA Contusion of right knee, initial encounter (principal); W18.30XA Fall on same level, unspecified, initial encounter; E11.22 Type 2 diabetes mellitus with diabetic chronic kidney disease; N18.9 Chronic kidney disease, unspecified; I10 Essential (primary) hypertension; Z88.2 Allergy status to sulfonamides; Z88.5 Allergy status to narcotic agent
CPT/HCPCS: 99284

== ENCOUNTER 2022-10-01 17:02 | Emergency (ER) | payer OTHER ==
--- OUTSIDE RECORDS SUMMARY | 2022-10-01 17:05 | XMS REPORT | Continuity of Care Document ---
:1955 Author Organization [facility] t Address [address] [place] [address] [address] [place] [address] Care Team Providers Name Role Phone Tony Rubio Primary Care Physician Florin Pennington Attending Clinician FLORIN RUIZ Attending Clinician Unavailable Orthopedic Surgery, Orthopedic Attending Clinician Unavailab LIZZIE Fisher Attending Clinician Unavailable Dennise LOT BOSSLizzie Kemp Attending Clinician Unknown, Attending Attending Clinician Unavailable Doctor Unassigned, [place] Attending Clinician Unavailable Miley Cr MD Attending Clinician MILEY CR Attending Clinician Unavailable Pob, [facility] Main Attending Clinician Unavailable Payers Payer Name Policy Type Policy Number Effective Date Expiration Date S ource Problems Condition Condition Condition Status Onset Resolution Last Treating Co mments Source Name Details Category Date Date Treatment Clinician Date Obesity Obesity Disease Active Univers (BMI (BMI 7-13 ity of 30-39.9) 30-39.9) 00:00: [place] 00 Medical Branch Closed Closed Disease Active Univers fracture fracture 7-13 ity of of left of left 00:00: [place] clavicle clavicle 00 Medica l Branch Lumbar Lumbar Disease Active Univers transverse transverse 7-13 it y of process process 00:00: [place] fracture, fracture, 00 Medi ambrose closed, closed, Branch initial initial encounter encounter Closed Closed Disease Active Univers fracture fracture 7-13 ity of of one rib of one [place] 00:00[place] right of right 00 Medica l side side Branch Trauma Trauma Disease Active Univers 7-12 ity of 00:00: [place] 00 Medical [place] Allergies, Adverse Reactions, Alerts Allergy Allergy Status Severity Reaction(s) Onset Inactive Treating Comm ents Source Name Type Date Date Clinician HYDROCOD DRUG Active N/V Univers ONE INGREDI 7-12 ity of 00:00: [place] 00 Medical [place] SULFA Drug Active N/V Univers (SULFONA Class 7-12 ity of MIDE 00:00: [place] ANTIBIOT 00 Medical ICS) Branch Sulfa Propensi Active Nausea Univers (Sulfona ty to and/or 7-12 ity of mide adverse Vomiting 00:00: [place] Antibiot reaction 00 Medica l ics) s Branch Hydrocod Propensi Active Nausea Univer s one ty to and/or 7-12 ity of adverse Vomiting 00:00: [place] reaction 00 Medical s Branch Sulfa Propensi Active Nausea Univers (Sulfona ty to and/or 7-12 ity of mide adverse Vomiting 00:00: [place] Antibiot reaction 00 Medica l ics) s Branch Social History Social Habit Start Date Stop Date Quantity Comments Source Exposure to 2022-09-20 2022-09-30 Not sure [facility] SARS-CoV-2 00:00:00 13:21:00 [facility] (event) [place] Tobacco use and 2022-09-18 2022-09-18 Smokeless tobacco Un iversity of exposure 00:00:00 00:00:00 non-user [facility] Sex Ass[birth year] At [birth year] Universit y of 00:00:00 00:00:00 [facility] Smoking Status Start Date Stop Date Source Never smoked tobacco [facility] Medications Ordered Filled Start Stop Current Ordering Indication Dosage Frequency Signature Comments Components Source Medication Medication Date Date Medication? Clinician (SIG) Name Name dexamethaso 2022- No [id number] 10mg U nivers ne 09-18 ity of (DECADRON) 18:15: 17:13 [place] injection 00 :00 Medical 10 mg Branch dexamethaso 2022- No [id number] 10mg 10 mg, Univers ne 3-04 03-04 Intramuscu ity of (DECADRON) 18:15: 17:13 lar, ONCE, [place] injection 00 :00 1 dose, On Medi ambrose 10 mg 09/18/22 Branch at 1215, Routine FEXOFENADIN 0 Yes 10mg Take 10 mg Univers E HCL 3-04 by mouth ity of (PAGE 11:02: daily. [place] ORAL) Medical Branch metFORMIN 0 Yes 850mg Take 1 Unive rs 850 mg 3-04 tablet by ity of tablet 11:02: mouth in [place] [address] the Medical morning Branch and 1 tablet in the evening. Take with meals. glipiZIDE Yes 10mg Take 1 Univer s 10 mg 3-04 tablet by ity of tablet 11:02: mouth 2 [place] [address] (two) Medical times Branch daily before breakfast and dinner. Levothyroxi Yes Take by Uni vers ne 50 mcg 3-04 mouth. ity of capsule 11:02: [place] [address] Medical Branch furosemide 0 Yes 20mg Take 1 Unive rs 20 mg 3-04 tablet by ity of tablet 11:02: mouth as [place] [address] needed. Medical Branch ENALAPRIL-H Yes 10mg Take 10-25 Univers YDROCHLOROT 3-04 mg by ity of HIAZIDE 11:02: mouth [facility] 41 daily. Medical Branch amitriptyli Yes 50mg Take 1 Univ ers ne 50 mg 3-04 tablet by ity of tablet 11:02: mouth in [place] [address] the Medical morning. Branch rosuvastati Yes 10mg Take 1 Univ ers n 10 mg 3-04 tablet by ity of tablet 11:02: mouth at [place] [address] bedtime. Medical Branch POTASSIUM-9 Yes 10mg Take 10 mg Univers 9 ORAL 3-04 by mouth ity of 11:02: daily. [place] [address] Medical Branch FEXOFENADIN 0 Yes 10mg Take 10 mg Univers E HCL 3-04 by mouth ity of (PAGE 11:02: daily. [place] ORAL) Medical Branch metFORMIN 2022-0 Yes 850mg Take 1 Unive rs 850 mg 3-04 tablet by ity of tablet 11:02: mouth in [place] [address] the Medical morning Branch and 1 tablet in the evening. Take with meals. glipiZIDE 2022-0 Yes 10mg Take 1 Univer s 10 mg 3-04 tablet by ity of tablet 11:02: mouth 2 [place] [address] (two) Medical times Branch daily before breakfast and dinner. Levothyroxi 2022-0 Yes Take by Uni vers ne 50 mcg 3-04 mouth. ity of capsule 11:02: [place] [address] Medical Branch furosemide 2022-0 Yes 20mg Take 1 Unive rs 20 mg 3-04 tablet by ity of tablet 11:02: mouth as [place] [address] needed. Medical Branch ENALAPRIL-H 2022-0 Yes 10mg Take 10-25 Univers YDROCHLOROT 3-04 mg by ity of HIAZIDE 11:02: mouth [place] ORAL 41 daily. Medical Branch amitriptyli 2022-0 Yes 50mg Take 1 Univ ers ne 50 mg 3-04 tablet by ity of tablet 11:02: mouth in [place] [address] the Medical morning. Branch rosuvastati 0 Yes 10mg Take 1 Univ ers n 10 mg 3-04 tablet by ity of tablet 11:02: mouth at [place] [address] bedtime. Medical Branch POTASSIUM-9 2022-0 Yes 10mg Take 10 mg Univers 9 ORAL 3-04 by mouth ity of 11:02: daily. [place] [address] Medical Branch FEXOFENADIN 2022-0 Yes 10mg Take 10 mg Univers E HCL 3-04 by mouth ity of (PAGE 11:02: daily. [place] ORAL) 41 Medical Branch metFORMIN 2022-0 Yes 850mg Take 1 Unive rs 850 mg 3-04 tablet by ity of tablet 11:02: mouth in [place] [address] the Medical morning Branch and 1 tablet in the evening. Take with meals. glipiZIDE 2022-0 Yes 10mg Take 1 Univer s 10 mg 3-04 tablet by ity of tablet 11:02: mouth 2 [place] [address] (two) Medical times Branch daily before breakfast and dinner. Levothyroxi 2022-0 Yes Take by Uni vers ne 50 mcg 3-04 mouth. ity of capsule 11:02: [place] [address] Medical Branch furosemide 2022-0 Yes 20mg Take 1 Unive rs 20 mg 3-04 tablet by ity of tablet 11:02: mouth as [place] [address] needed. Medical Branch ENALAPRIL-H 2022-0 Yes 10mg Take 10-25 Univers YDROCHLOROT 3-04 mg by ity of HIAZIDE 11:02: mouth [place] ORAL 41 daily. Medical Branch amitriptyli 0 Yes 50mg Take 1 Univ ers ne 50 mg 3-04 tablet by ity of tablet 11:02: mouth in [place] [address] the Medical morning. Branch rosuvastati 0 Yes 10mg Take 1 Univ ers n 10 mg 3-04 tablet by ity of tablet 11:02: mouth at [place] [address] bedtime. Medical Branch POTASSIUM-9 0 Yes 10mg Take 10 mg Univers 9 ORAL 3-04 by mouth ity of 11:02: daily. [place] [address] Medical Branch FEXOFENADIN 0 Yes 10mg Take 10 mg Univers E HCL 3-04 by mouth ity of (PAGE 11:02: daily. [facility]) 41 Medical Branch metFORMIN 0 Yes 850mg Take 1 Unive rs 850 mg 3-04 tablet by ity of tablet 11:02: mouth in [place] [address] the Medical morning Branch and 1 tablet in the evening. Take with meals. glipiZIDE 0 Yes 10mg Take 1 Univer s 10 mg 3-04 tablet by ity of tablet 11:02: mouth 2 [place] [address] (two) Medical times Branch daily before breakfast and dinner. Levothyroxi Yes Take by Uni vers ne 50 mcg 3-04 mouth. ity of capsule 11:02: [place] [address] Medical Branch furosemide 2022-0 Yes 20mg Take 1 Unive rs 20 mg 3-04 tablet by ity of tablet 11:02: mouth as [place] [address] needed. Medical Branch ENALAPRIL-H Yes 10mg Take 10-25 Univers YDROCHLOROT 3-04 mg by ity of HIAZIDE 11:02: mouth [place] ORAL 41 daily. Medical Branch amitriptyli 0 Yes 50mg Take 1 Univ ers ne 50 mg 3-04 tablet by ity of tablet 11:02: mouth in [place] [address] the Medical morning. Branch rosuvastati 0 Yes 10mg Take 1 Univ ers n 10 mg 3-04 tablet by ity of tablet 11:02: mouth at [place] [address] bedtime. Medical Branch POTASSIUM-9 2022-0 Yes 10mg Take 10 mg Univers 9 ORAL 3-04 by mouth ity of 11:02: daily. [place] [address] Medical Branch FEXOFENADIN 0 Yes 10mg Take 10 mg Univers E HCL 3-04 by mouth ity of (PAGE 11:02: daily. [facility]) 41 Medical Branch metFORMIN 0 Yes 850mg Take 1 Unive rs 850 mg 3-04 tablet by ity of tablet 11:02: mouth in [place] [address] the Medical morning Branch and 1 tablet in the evening. Take with meals. glipiZIDE 0 Yes 10mg Take 1 Univer s 10 mg 3-04 tablet by ity of tablet 11:02: mouth 2 [place] [address] (two) Medical times Branch daily before breakfast and dinner. Levothyroxi Yes Take by Uni vers ne 50 mcg 3-04 mouth. ity of capsule 11:02: [place] [address] Medical Branch furosemide 0 Yes 20mg Take 1 Unive rs 20 mg 3-04 tablet by ity of tablet 11:02: mouth as [place] [address] needed. Medical Branch ENALAPRIL-H Yes 10mg Take 10-25 Univers YDROCHLOROT 3-04 mg by ity of HIAZIDE 11:02: mouth [place] [address] daily. Medical Branch amitriptyli Yes 50mg Take 1 Univ ers ne 50 mg 3-04 tablet by ity of tablet 11:02: mouth in [place] [address] the Medical morning. Branch rosuvastati Yes 10mg Take 1 Univ ers n 10 mg 3-04 tablet by ity of tablet 11:02: mouth at [place] [address] bedtime. Medical Branch POTASSIUM-9 Yes 10mg Take 10 mg Univers 9 ORAL 3-04 by mouth ity of 11:02: daily. [place] [address] Medical Branch DICLOFENAC 2021-0 Yes [id number] TAKE 1 Univers 75 mg EC 8-11 TABLET BY ity of tablet 00:00: MOUTH [place] 00 TWICE Medical DAILY WITH Branch MEALS DICLOFENAC 2021-0 Yes [id number] TAKE 1 Univers 75 mg EC 8-11 TABLET BY ity of tablet 00:00: MOUTH [place] 00 TWICE Medical DAILY WITH Branch MEALS DICLOFENAC 2021-0 Yes [id number] TAKE 1 Univers 75 mg EC 8-11 TABLET BY ity of tablet 00:00: MOUTH [place] 00 TWICE Medical DAILY WITH Branch MEALS DICLOFENAC 2021-0 Yes [id number] TAKE 1 Univers 75 mg EC 8-11 TABLET BY ity of tablet 00:00: MOUTH [place] 00 TWICE Medical DAILY WITH Branch MEALS DICLOFENAC 2021-0 Yes [id number] TAKE 1 Univers 75 mg EC 8-11 TABLET BY ity of tablet 00:00: MOUTH [place] 00 TWICE Medical DAILY WITH Branch MEALS DICLOFENAC 2021-0 Yes [id number] TAKE 1 Univers 75 mg EC 8-11 TABLET BY ity of tablet 00:00: MOUTH [place] 00 TWICE Medical DAILY WITH Branch MEALS DICLOFENAC 2021-0 Yes [id number] TAKE 1 Univers 75 mg EC 8-11 TABLET BY ity of tablet 00:00: MOUTH [place] 00 TWICE Medical DAILY WITH Branch MEALS DICLOFENAC 2021-0 Yes [id number] TAKE 1 Univers 75 mg EC 5-31 TABLET BY ity of tablet 00:00: MOUTH [place] 00 TWICE Medical DAILY WITH Branch MEALS DICLOFENAC 2021-0 2022- No [id number] TAKE 1 Univers 75 mg EC 5-31 08-11 TABLET BY ity o f tablet 00:00: 00:00 MOUTH [place] 00 :00 TWICE Medical DAILY WITH Branch MEALS DICLOFENAC 2021-0 Yes [id number] TAKE 1 Univers 75 mg EC 4-12 TABLET BY ity of tablet 00:00: MOUTH [place] 00 TWICE Medical DAILY WITH Branch MEALS DICLOFENAC 2021-0 2022- No [id number] TAKE 1 Univers 75 mg EC 4-12 05-31 TABLET BY ity o f tablet 00:00: 00:00 MOUTH [place] 00 :00 TWICE Medical DAILY WITH Branch MEALS diclofenac 2020-07 Yes 75mg Take 1 Unive rs 75 mg EC 2-07 tablet by ity of tablet 00:00: mouth 2 [place] 00 (two) Medical times Branch daily with meals. diclofenac 2020-07 Yes 75mg Take 1 Unive rs 75 mg EC 2-07 tablet by ity of tablet 00:00: mouth 2 [place] 00 (two) Medical times Branch daily with meals. diclofenac 2020-07- No 75mg Take 1 Univ ers 75 mg EC 2-07 04-12 tablet by ity o f tablet 00:00: 00:00 mouth 2 [place] 00 :00 (two) Medical times Branch daily with meals. metFORMIN Yes 850mg Take 850 Uni vers 850 mg 7-13 mg by ity of tablet 17:19: mouth 2 [place] 02 (two) Medical times Branch daily with meals. glipiZIDE Yes 10mg Take 10 mg Un esther 10 mg 7-13 by mouth 2 ity of tablet 17:19: (two) [place] times Medical daily Branch before breakfast and dinner. Levothyroxi Yes Take by Uni vers ne 50 mcg 7-13 mouth. ity of capsule 17:19: [place] Medical Branch furosemide Yes 20mg Take 20 mg U nivers 20 mg 7-13 by mouth ity of tablet 17:19: as needed. [place] [address] Medical Branch ENALAPRIL-H Yes 10mg Take 10-25 Univers YDROCHLOROT 7-13 mg by ity of HIAZIDE 17:19: mouth [place] ORAL 02 daily. Medical Branch amitriptyli Yes 50mg Take 50 mg Univers ne 50 mg 7-13 by mouth ity of tablet 17:19: daily. [place] [address] Medical Branch rosuvastati Yes 10mg Take 10 mg Univers n (CRESTOR) 7-13 by mouth ity of 10 mg 17:19: at [facility] 02 bedtime. Medical Branch POTASSIUM-9 Yes 10mg Take 10 mg Univers 9 ORAL 7-13 by mouth ity of 17:19: daily. [place] [address] Medical Branch FEXOFENADIN Yes 10mg Take 10 mg Univers E HCL 7-13 by mouth ity of (PAGE 17:19: daily. [place] [address] Medical Branch metFORMIN Yes 850mg Take 850 Uni vers 850 mg 7-13 mg by ity of tablet 17:19: mouth 2 [place] (two) Medical times Branch daily with meals. glipiZIDE Yes 10mg Take 10 mg Un esther 10 mg 7-13 by mouth 2 ity of tablet 17:19: (two) [place] [address] times Medical daily Branch before breakfast and dinner. Levothyroxi Yes Take by Uni vers ne 50 mcg 7-13 mouth. ity of capsule 17:19: [place] [address] Medical Branch furosemide Yes 20mg Take 20 mg U nivers 20 mg 7-13 by mouth ity of tablet 17:19: as needed. [place] [address] Medical Branch ENALAPRIL-H Yes 10mg Take 10-25 [...] by mouth ity of (PAGE 17:19: daily. [place] ORAL) Medical Branch metFORMIN Yes 850mg Take 850 Uni vers 850 mg 7-13 mg by ity of tablet 17:19: mouth 2 (two) Medical times Branch daily with meals. glipiZIDE Yes 10mg Take 10 mg Un esther 10 mg 7-13 by mouth 2 ity of tablet 17:19: (two) times Medical daily Branch before breakfast and dinner. Levothyroxi Yes Take by Uni vers ne 50 mcg 7-13 mouth. ity of capsule 17:19: Medical Branch furosemide Yes 20mg Take 20 mg U nivers 20 mg 7-13 by mouth ity of tablet 17:19: as needed. Medical Branch ENALAPRIL-H Yes 10mg Take 10-25 Univers YDROCHLOROT 7-13 mg by ity of HIAZIDE 17:19: mouth [place] ORAL 02 daily. Medical Branch amitriptyli Yes [...] by mouth ity of (PAGE 17:19: daily. [place] ORAL) Medical Branch metFORMIN Yes 850mg Take 850 Uni vers 850 mg 7-13 mg by ity of tablet 17:19: mouth 2 [place] (two) Medical times Branch daily with meals. glipiZIDE Yes 10mg Take 10 mg Un [place]her 10 mg 7-13 by mouth 2 ity of tablet 17:19: (two) [place] [address] times Medical daily Branch before breakfast and dinner. Levothyroxi Yes Take by Uni vers ne 50 mcg 7-13 mouth. ity of capsule 17:19: [place] Medical Branch furosemide Yes 20mg Take 20 mg U nivers 20 mg 7-13 by mouth ity of tablet 17:19: as needed. [place] [address] Medical Branch ENALAPRIL-H Yes 10mg Take 10-25 Univers YDROCHLOROT 7-13 mg by ity of HIAZIDE 17:19: mouth [place] ORAL 02 daily. Medical Branch amitriptyli Yes 50mg Take 50 mg Univers ne 50 mg 7-13 by mouth ity of tablet 17:19: daily. [place] [address] Medical Branch rosuvastati Yes 10mg Take 10 mg Univers n (CRESTOR) 7-13 by mouth ity of 10 mg 17:19: at [place] tablet 02 bedtime. Medical Branch POTASSIUM-9 Yes 10mg Take 10 mg Univers 9 ORAL 7-13 by mouth ity of 17:19: daily. [place] [address] Medical Branch FEXOFENADIN Yes 10mg Take 10 mg Univers E HCL 7-13 by mouth ity of (PAGE 17:19: daily. [place] ORAL) 02 Medical Branch metFORMIN Yes 850mg Take 850 Uni vers 850 mg 7-13 mg by ity of tablet 17:19: mouth 2 [place] (two) Medical times Branch daily with meals. glipiZIDE Yes 10mg Take 10 mg Un esther 10 mg 7-13 by mouth 2 ity of tablet 17:19: (two) [place] [address] times Medical daily Branch before breakfast and dinner. Levothyroxi Yes Take by Uni vers ne 50 mcg 7-13 mouth. ity of capsule 17:19: [place] [address] Medical Branch furosemide Yes 20mg Take 20 mg U nivers 20 mg 7-13 by mouth ity of tablet 17:19: as needed. [place] [address] Medical Branch ENALAPRIL-H Yes 10mg Take 10-25 [...] 7-13 by mouth ity of 17:19: daily. [place] Medical Branch FEXOFENADIN Yes 10mg Take 10 mg Univers E HCL 7-13 by mouth ity of (PAGE 17:19: daily. [place] [address] Medical Branch metFORMIN Yes 850mg Take 850 Uni vers 850 mg 7-13 mg by ity of tablet 17:19: mouth 2 [place] [address] (two) Medical times Branch daily with meals. glipiZIDE Yes 10mg Take 10 mg Un esther 10 mg 7-13 by mouth 2 ity of tablet 17:19: (two) [place] [address] times Medical daily Branch before breakfast and dinner. Levothyroxi Yes Take by Uni vers ne 50 mcg 7-13 mouth. ity of capsule 17:19: [place] [address] Medical Branch furosemide Yes 20mg Take 20 mg U nivers 20 mg 7-13 by mouth ity of tablet 17:19: as needed. [place] Medical Branch ENALAPRIL-H Yes 10mg Take 10-25 [...] 7-13 by mouth ity of 17:19: daily. [place] [address] Medical Branch FEXOFENADIN Yes 10mg Take 10 mg Univers E HCL 7-13 by mouth ity of (PAGE 17:19: daily. [place] ORAL) Medical Branch metFORMIN Yes 850mg Take 850 Uni vers 850 mg 7-13 mg by ity of tablet 17:19: mouth 2 [place] (two) Medical times Branch daily with meals. glipiZIDE Yes 10mg Take 10 mg Un esther 10 mg 7-13 by mouth 2 ity of tablet 17:19: (two) [place] times Medical daily Branch before breakfast and dinner. Levothyroxi Yes Take by Uni vers ne 50 mcg 7-13 mouth. ity of capsule 17:19: [place] [address] Medical Branch furosemide Yes 20mg Take 20 mg U nivers 20 mg 7-13 by mouth ity of tablet 17:19: as needed. [place] [address] Medical Branch ENALAPRIL-H Yes 10mg Take 10-25 Univers YDROCHLOROT 7-13 mg by ity of HIAZIDE 17:19: mouth [place] ORAL 02 daily. Medical Branch amitriptyli Yes 50mg Take 50 mg Univers ne 50 mg 7-13 by mouth ity of tablet 17:19: daily. [place] [address] Medical Branch rosuvastati Yes 10mg Take 10 mg Univers n (CRESTOR) 7-13 by mouth ity of 10 mg 17:19: at [place] tablet 02 bedtime. Medical Branch POTASSIUM-9 Yes 10mg Take 10 mg Univers 9 ORAL 7-13 by mouth ity of 17:19: daily. [place] [address] Medical Branch FEXOFENADIN Yes 10mg Take 10 mg Univers E HCL 7-13 by mouth ity of (PAGE 17:19: daily. [place] ORAL) Medical Branch metFORMIN Yes 850mg Take 850 Uni vers 850 mg 7-13 mg by ity of tablet 17:19: mouth 2 [place] (two) Medical times Branch daily with meals. glipiZIDE Yes 10mg Take 10 mg Un esther 10 mg 7-13 by mouth 2 ity of tablet 17:19: (two) [place] [address] times Medical daily Branch before breakfast and dinner. Levothyroxi Yes Take by Uni vers ne 50 mcg 7-13 mouth. ity of capsule 17:19: [place] [address] Medical Branch furosemide Yes 20mg Take 20 mg U nivers 20 mg 7-13 by mouth ity of tablet 17:19: as needed. [place] [address] Medical Branch ENALAPRIL-H Yes 10mg Take 10-25 Univers YDROCHLOROT 7-13 mg by ity of HIAZIDE 17:19: mouth [place] ORAL 02 daily. Medical Branch amitriptyli Yes 50mg Take 50 mg Univers ne 50 mg 7-13 by mouth ity of tablet 17:19: daily. [place] [address] Medical Branch rosuvastati Yes 10mg Take 10 mg Univers n (CRESTOR) 7-13 by mouth ity of 10 mg 17:19: at [facility] 02 bedtime. Medical Branch POTASSIUM-9 Yes 10mg Take 10 mg Univers 9 ORAL 7-13 by mouth ity of 17:19: daily. [place] [address] Medical Branch FEXOFENADIN Yes 10mg Take 10 mg Univers E HCL 7-13 by mouth ity of (PAGE 17:19: daily. [place] [address] Medical Branch metFORMIN Yes 850mg Take 850 Uni vers 850 mg 7-13 mg by ity of tablet 17:19: mouth 2 [place] [address] (two) Medical times Branch daily with meals. glipiZIDE Yes 10mg Take 10 mg Un esther 10 mg 7-13 by mouth 2 ity of tablet 17:19: (two) [place] [address] times Medical daily Branch before breakfast and dinner. Levothyroxi Yes Take by Uni vers ne 50 mcg 7-13 mouth. ity of capsule 17:19: [place] [address] Medical Branch furosemide Yes 20mg Take 20 mg U nivers 20 mg 7-13 by mouth ity of tablet 17:19: as needed. [place] [address] Medical Branch ENALAPRIL-H Yes 10mg Take 10-25 Univers YDROCHLOROT 7-13 mg by ity of HIAZIDE 17:19: mouth [place] ORAL 02 daily. Medical Branch amitriptyli Yes 50mg Take 50 mg Univers ne 50 mg 7-13 by mouth ity of tablet 17:19: daily. [place] [address] Medical Branch rosuvastati Yes 10mg Take 10 mg Univers n (CRESTOR) 7-13 by mouth ity of 10 mg 17:19: at [place] tablet 02 bedtime. Medical Branch POTASSIUM-9 2017-0 Yes 10mg Take 10 mg Univers 9 ORAL 7-13 by mouth ity of 17:19: daily. [place] 02 Medical Branch FEXOFENADIN 2017-0 Yes 10mg Take 10 mg Univers E HCL 7-13 by mouth ity of (PAGE 17:19: daily. [place] ORAL) 02 Medical Branch Immunizations Ordered Filled Immunization Date Status Comments [facility] e Immunization Name Name SARS-COV-2 COVID-19 2020-12-01 Completed Unive rsity of MODERNA VACCINE 00:00:00 [facility] ical Branch SARS-COV-2 COVID-19 2020-12-01 Completed Unive rsity of MODERNA VACCINE 00:00:00 [facility] ical Branch SARS-COV-2 COVID-19 2020-12-01 Completed Unive rsity of MODERNA VACCINE 00:00:00 [facility] ical Branch SARS-COV-2 COVID-19 2020-12-01 Completed Unive rsity of MODERNA VACCINE 00:00:00 [place] [facility] ical Branch SARS-COV-2 COVID-19 2020-12-01 Completed Unive rsity of MODERNA VACCINE 00:00:00 [place] [facility] ical Branch SARS-COV-2 COVID-19 2020-12-01 Completed Unive rsity of MODERNA VACCINE 00:00:00 [place] [facility] ical Branch SARS-COV-2 COVID-19 2020-12-01 Completed Unive rsity of MODERNA VACCINE 00:00:00 [place] [facility] ical Branch SARS-COV-2 COVID-19 2020-12-01 Completed Unive rsity of MODERNA VACCINE 00:00:00 [place] [facility] ical Branch SARS-COV-2 COVID-19 2020-12-01 Completed Unive rsity of MODERNA 12+ YRS 00:00:00 [place] Med ical VACCINE Branch SARS-COV-2 COVID-19 2020-12-01 Completed Unive rsity of MODERNA 12+ YRS 00:00:00 [place] [facility] ical VACCINE Branch SARS-COV-2 COVID-19 2020-12-01 Completed Unive rsity of MODERNA 12+ YRS 00:00:00 [place] [facility] ical VACCINE Branch SARS-COV-2 COVID-19 2020-12-01 Completed Unive rsity of MODERNA 12+ YRS 00:00:00 [place] Med ical VACCINE Branch SARS-COV-2 COVID-19 2020-12-01 Completed Unive rsity of MODERNA 12+ YRS 00:00:00 [place] Med ical VACCINE Branch SARS-COV-2 COVID-19 2020-12-01 Completed Unive rsity of MODERNA 12+ YRS 00:00:00 [place] Med ical VACCINE Branch SARS-COV-2 COVID-19 2020-11-03 Completed Unive rsity [...] COVID-19 2020-11-03 Completed Unive rsity of MODERNA 12+ YRS 00:00:00 [place] Med ical VACCINE Branch SARS-COV-2 COVID-19 2020-11-03 Completed Unive rsity of MODERNA 12+ YRS 00:00:00 [place] Med ical VACCINE Branch SARS-COV-2 COVID-19 2020-11-03 Completed Unive rsity of MODERNA 12+ YRS 00:00:00 [place] Med ical VACCINE Branch SARS-COV-2 COVID-19 2020-11-03 Completed Unive rsity of MODERNA 12+ YRS 00:00:00 [place] Med ical VACCINE Branch SARS-COV-2 COVID-19 2020-11-03 Completed Unive rsity of MODERNA 12+ YRS 00:00:00 [place] Med ical VACCINE Branch SARS-COV-2 COVID-19 2020-11-03 Completed Unive rsity of MODERNA 12+ YRS 00:00:00 [place] Med ical VACCINE Branch Vital Signs Vital Name Observation Time Observation Value Comments Source Systolic blood 2022-09-30 18:23:00 149 mm[Hg] Univer sity of pressure [place] [facility] Diastolic blood 2022-09-30 18:23:00 77 mm[Hg] Unive rsity of pressure [place] [facility] Heart rate 2022-09-30 18:23:00 88 /min [facility] [place] [facility] Body height 2022-09-30 18:23:00 149.9 cm [facility] [place] [facility] Body weight 2022-09-30 18:23:00 86.637 kg [facility] [place] [facility] BMI 2022-09-30 18:23:00 38.58 kg/m2 [facility] [place] [facility] Systolic blood 2022-09-18 16:59:00 123 mm[Hg] Univer sity of pressure [place] [facility] Diastolic blood 2022-09-18 16:59:00 92 mm[Hg] Unive rsity of [facility] Heart rate 2022-09-18 16:59:00 88 /min [facility] Body temperature 2022-09-18 16:59:00 37.06 Paula [facility] Body height 2022-09-18 16:59:00 149.9 cm [facility] Body weight 2022-09-18 16:59:00 86.637 kg [facility] BMI 2022-09-18 16:59:00 38.58 kg/m2 [facility] Systolic blood 2021-06-17 19:51:00 141 mm[Hg] Univer sity of pressure [facility] Diastolic blood 2021-06-17 19:51:00 73 mm[Hg] Unive rsity of pressure [facility] Heart rate 2021-06-17 19:51:00 84 /min [facility] Body height 2021-06-17 19:50:00 149.9 cm [facility] Body weight 2021-06-17 19:50:00 89.948 kg [facility] BMI 2021-06-17 19:50:00 40.05 kg/m2 [facility] Procedures Procedure Date / Time Performing Clinician Source Performed XR SHOULDER 2+ VW RIGHT 2022-09-18 17:20:11 Lizzie [facility] ASSIGNMENT OF BENEFITS 2022-09-18 16:51:51 Doctor Unassigned, No [facility] NON [facility] 2021-06-03 06:01:00 Doctor Unassigned, No [facility] DOCUMENTATION [facility] PRE-OP 2021-06-01 06:01:00 Doctor Unassigned, No [facility] Encounters Start End Encounter Admission Attending Care Care Encounter Source Date/Time Date/Time Type Type Clinicians Facility Department ID 2022-09-30 2022-09-30 Office Sara [facility] [id number] [id number] Univers 13:30:00 14:08:37 Visit [facility] [id number] it of [place] 4.2.7.2.686 Raúl as TALIA?BLEA [phone] N[place] evan NGUYEN [address] [place] [address] MEDICAL OFFICE BUILDING 2022-09-30 2022-09-30 Outpatient R SARA [facility] [id number] Univers 13:30:00 13:30:00 [facility]22-09-22 2022-09-22 Letter Orthopedic [facility] 1.2.840.114 [id number] Univers 00:00:00 00:00:00 (Out) Surgery SPECIALTY [id number] ity of [facility] 4.2.7.2.686 [facility] AT [phone] N[place] evan ASH [address] [place] [address] 2022-09-18 2022-09-18 Outpatient R DENNISE [facility] [id number] Univers 11:10:40 23:59:00 LIZZIE tapia [facility] 2022-09-18 2022-09-18 [facility] [id number] Univers 11:10:40 23:59:00 Encounter [facility]ie [facility] [id number] [facility] 4.2.7.2.686 Raúl as TALIA?BLEA [phone] N[place] evan NGUYEN [address] MEDICAL OFFICE [facility] 2022-09-18 2022-09-18 Urgent Lizzie Bowden [facility] [id number] Univers 11:00:00 11:30:50 Care Unknown, Attending HEALTH [id number] ity of [place] 4.2.7.2.686 Raúl as TALIA?BLEA [phone] Nc dicward NGUYEN [address] MEDICAL OFFICE [facility] 2022-09-18 2022-09-18 Orders Doctor MILES 1.2.840.114 [id number] Univers 00:00:00 00:00:00 Only Unassigned, JETT [id number] ity of [facility] 4.2.7.2.686 Raúl as [id number] [address] 2022-02-24 2022-02-24 [facility] 1.2.840.114 [id number] Univers 00:00:00 00:00:00 Florin S HEALTH [id number] it y of [place] 4.2.7.2.686 Raúl as TALIA?BLEA [id number] Nc evan NGUYEN [address] MEDICAL OFFICE [facility] 2021-12-11 2021-12-11 [facility] 1.2.840.114 [id number] Univers 00:00:00 00:00:00 Florin S HEALTH [id number] it y of [place] 4.2.7.2.686 Raúl as TALIA?BLEA [phone] Nc evan NGUYEN [address] MEDICAL OFFICE [facility] 2021-10-27 2021-10-27 Nayana Cr [facility] [id number] Univers 00:00:00 00:00:00 Miley L HEALTH [id number] it y of [place] 4.2.7.2.686 Raúl as TALIA?BLEA [phone] Me evan NGUYEN [address] MEDICAL OFFICE [facility] 2021-06-19 2021-06-19 Telephone [facility] 1.2.840.114 [id number] Univers 00:00:00 00:00:00 Miley GRIFFITHS [id number] it y of [place] 4.2.7.2.686 Raúl as TALIA?BLEA [phone] Me evan NGUYEN 198 [facility] OFFICE [facility] 2021-06-17 2021-06-17 [facility] [id number] Univers 14:00:00 14:17:46 MILEY tapia [facility] 2021-06-17 2021-06-17 Office [facility] [id number] Univers 13:39:14 14:17:46 Visit Miley GRIFFITHS 350.1.13.10 it y of [place] 4.2.7.2.686 Raúl as TALIA?BLEA [id number] Me evan NGUYEN [address] [place] [address] OFFICE [facility] 2021-06-17 2021-06-17 [facility] [id number] Univers 14:00:00 14:00:00 MILEY tapia [facility] 2021-06-04 2021-06-04 [facility] [id number] Univers 00:00:00 00:00:00 Miley GRIFFITHS 350.1.13.10 it y of [place] 4.2.7.2.686 Raúl as TALIA?BLEA [id number] Me evan NGUYEN [address] [place] [address] OFFICE [facility] 2021-06-03 2021-06-03 [facility] 1.2.840.114 [id number] Univers 11:41:00 23:59:00 Encounter Miley STUBBSANN 350.1.13.10 [place] [id number] [address] 2021-06-03 2021-06-03 [facility] NUT [id number] Univers 00:00:00 23:59:00 MILEY tapia [facility] 2021-06-03 2021-06-03 Orders Doctor MILES 1.2.840.114 [id number] Univers 00:00:00 00:00:00 Only Unassigned, JETT 350.1.13.10 ity of [facility] 4.2.7.2.686 Raúl as [id number] [facility] [address] 2021-06-01 2021-06-01 Orders Doctor MILES 1.2.840.114 [id number] Univers 00:00:00 00:00:00 Only Unassigned, JETT 350.1.13.10 ity of [facility] 4.2.7.2.686 Raúl as [id number] [facility] [address] 2021-05-29 2021-05-29 Telephone [facility] [id number] Univers 00:00:00 00:00:00 [facility] 350.1.13.10 it y of [place] 4.2.7.2.686 Raúl as TALIA?BLEA [id number] Nc evan NGUYEN [address] MEDICAL OFFICE [facility] 2021-05-27 2021-05-27 [facility] 1.2.840.114 [id number] Univers 10:45:00 23:59:00 Encounter Miley ELLER 350.1.13.10 ity of [place] [phone] [facility] [address] 2021-05-27 2021-05-27 Medical Terminologist Lasha Sanz Lab Main [facility] [id number] [id number] Univers 10:48:00 11:03:00 Visit Miley Cr 350.1.13.10 ity of [place] 4.2.7.2.686 [place] [facility] [id number] [place] evan BOSCH [address] [facility] 2021-05-27 2021-05-27 [facility] [id number] Univers 10:47:25 10:44:00 MILEY ity of [facility] 2021-05-27 2021-05-27 [facility] 1.2.840.114 [id number] Univers 09:15:00 10:44:00 Encounter Miley ELLER 350.1.13.10 ity of [place].2.[place] [id number] [address] 2021-05-27 2021-05-27 [facility] 1.2.840.114 [id number] Univers 00:00:00 00:00:00 Miley Gilmore HEALTH 350.1.13.10 it y of [place] 4.2.7.2.686 Raúl as TALIA?BLEA [id number] [place] evan NGUYEN [address] MEDICAL OFFICE [facility] 2021-05-27 2021-05-27 Telephone [facility] 1.2.840.114 [id number] Univers 00:00:00 00:00:00 Miley GRIFFITHS 350.1.13.10 it y of [place] 4.2.7.2.686 Raúl as TALIA?BLEA [id number] Nc evan NGUYEN 198 [facility] OFFICE [facility] 2021-05-21 2021-05-21 Telephone [facility] 1.2.840.114 [id number] Univers 00:00:00 00:00:00 Miley GRIFFITHS 350.1.13.10 it y of [place] 4.2.7.2.686 Raúl as TALIA?BLEA [phone] Nc evan NGUYEN 198 [facility] OFFICE [facility] 2021-05-20 2021-05-20 Outpatient [facility] [id number] Univers 15:20:00 23:59:00 MILEY ity of [facility] 2021-05-20 2021-05-20 [facility] 1.2.840.114 [id number] Univers 15:20:00 23:59:00 Encounter Miley Gilmore HEALTH 350.1.13.10 ity of [place] 4.2.7.2.686 Raúl as TALIA?BLEA [id number] Nc evan NGUYEN 809 [facility] OFFICE [facility] 2021-05-20 2021-05-20 Office [facility] [id number] Univers 14:56:18 16:13:38 Visit Miley Gilmore HEALTH 350.1.13.10 it y of [place] 4.2.7.2.686 Raúl as TALIA?BLEA [id number] Nc evan [address] MEDICAL OFFICE BUILDING 2021-05-20 2021-05-20 Outpatient R TAYO, [facility] [id number] [facility] 15:20:00 15:20:00 MILEY ity of [facility] 2021-05-12 2021-05-12 Orders Doctor MILES 1.2.840.114 [id number] Univers 00:00:00 00:00:00 Only Unassigned, JETT 350.1.13.10 ity of [place] [facility] 4.2.7.2.686 Raúl as [id number] [place] [address] Branch Results This patient has no known results.
[2022-10-01] MEDS ORDERED: NA CHLORIDE 0.9% 1,000 ML ONE ×2 (17:21→19:40)
[2022-10-01 17:34] LABS: Urine Blood Negative (Negative); Urine Glucose 2+ (Negative); Urine Protein Negative (Negative)
[2022-10-01 17:49] LABS: Urine Bacteria None Seen /HPF (<20); Urine RBC <5 /HPF (None Seen)
[2022-10-01 17:55] LABS: Hematocrit 38.3 % (36.0-45.0); Lymphocytes % 8.4 % (15.3-44.8); MCV 82.8 fL (80-100); MPV 7.9 fL (7.6-11.3); RBC Red Blood Cell Count 4.63 M/uL (3.86-4.86)
[2022-10-01 18:23] LABS: BUN Blood Urea Nitrogen 37 mg/dL (7-18); Bicarbonate 25 mEq/L (21-32); Glomerular Filtration Rate 25 ml/min (=/>90); Potassium 4.5 mEq/L (3.5-5.1); Sodium Level 129 mEq/L (136-145)
[2022-10-01 18:25] LABS: Glucose Level 621 mg/dL (74-106)
[2022-10-01] MEDS ORDERED: INSULIN -REGULAR HUMAN 50 UNIT/0.5 ML ML ONE (18:36)
--- NOTE | 2022-10-01 21:23 | EDPHYS ---
Physician Documentation [facility] Name: Kandace Chery Age: 67 yrs Sex: Female : 1955 Arrival Date: 10/01/2022 Time: 17:05 Bed 3 Private MD: Tony Rubio E ED Physician Geovany Marques HPI: 10/01 18:08 This 67 yrs old Female presents to ER via Ambulatory with complaints of High Blood kb Sugar. 18:08 The patient or guardian reports hyperglycemia, that was potentially precipitated by no kb particular event. Onset: The symptoms/episode began/occurred this morning. Associated signs and symptoms: Pertinent positives: None. Current symptoms: In the emergency department the patient's symptoms are unchanged from the initial presentation. The patient has not experienced similar symptoms in the past. The patient has not recently seen a physician. Patient reports her blood sugar has been high all day. States it was over 500 at home. Denies any associated symptoms. States she came in because her daughter told her she needed to.. Historical: - Allergies: 17:12 Hydrocodone-Acetaminophen; hb 17:12 Sulfa (Sulfonamide Antibiotics); hb - PMHx: 17:12 cirrhosis of liver; diabetes mellitus; Hypertensive disorder; kidney disease; hb - PSHx: 17:12 Cholecystectomy; hysterectomy; right knee; hb - Immunization history:: Adult Immunizations up to date. - Social history:: Smoking status: Patient denies any tobacco usage or history of. ROS: 18:07 Constitutional: Negative for fever, chills, and weight loss. kb 18:07 Endocrine: Positive for hyperglycemia. 18:07 All other systems are negative. Exam: 18:07 Constitutional: This is a well developed, well nourished patient who is awake, alert, kb and in no acute distress. Head/Face: Normocephalic, atraumatic. ENT: Moist Mucous membranes Cardiovascular: Regular rate and rhythm with a normal S1 and S2. No gallops, murmurs, or rubs. No pulse deficits. Respiratory: Respirations even and unlabored. No increased work of breathing. Talking in full sentences Abdomen/GI: Soft, non-tender. No distention Skin: Warm, dry with normal turgor. Normal color. MS/ Extremity: Pulses equal, no cyanosis. Neurovascular intact. Full, normal range of motion. Neuro: Awake and alert, GCS 15, oriented to person, place, time, and situation. Moves all extremities. Normal gait. 19:22 ECG was reviewed by the Attending Physician. Vital Signs: 17:11 BP 152 / 80; Pulse 102; Resp 18; Temp 98.3; Pulse Ox 100% on R/A; Weight 81.65 kg; hb Height 4 ft. 11 in. ; Pain 0/10; 18:19 BP 144 / 59; Pulse 95; Resp 18; Pulse Ox 95% on R/A; ll1 19:00 BP 155 / 71; Pulse 91; Resp 20; Pulse Ox 98% on R/A; Pain 0/10; pf1 20:00 BP 152 / 72; Pulse 89; Resp 20; Pulse Ox 98% on R/A; Pain 0/10; pf1 17:11 Body Mass Index 36.36 (81.65 kg, 149.86 cm) hb 17:11 Pain Scale: Adult hb 19:00 Pain Scale: Adult pf1 20:00 Pain Scale: Adult pf1 MDM: 17:08 Patient medically screened. kb 18:08 Differential diagnosis: DKA, hyperglycemia. Data reviewed: vital signs, nurses notes. kb Care significantly affected by the following chronic conditions: Diabetes. 19:16 ED course: Corrected sodium for hyperglycemia - 137. kb 19:26 Consideration of Admission/Observation Escalation of care including kb admission/observation considered. admission considered for hyperglycemia and serum ketones. Pt states she feels fine and believes her sugar is high due to a cortisone injection that she received yesterday. Does not want to be admitted. . Counseling: I had a detailed discussion with the patient and/or guardian regarding: the historical points, exam findings, and any diagnostic results supporting the discharge/admit diagnosis, lab results, the need for outpatient follow up, a family practitioner, to return to the emergency department if symptoms worsen or persist or if there are any questions or concerns that arise at home. Transition of care: After a detail discussion of the patient's case, care is transferred to Micaela Murray [facility]. 10/01 17:11 Order name: Glucose hb 10/01 17:12 Order name: EKG; Complete Time: 17:12 kb 10/01 17:12 Order name: IV Start; Complete Time: 17:17 kb 10/01 17:12 Order name: Urine Dipstick-Ancillary (obtain specimen); Complete Time: 17:34 kb 10/01 17:12 Order name: EKG - Nurse/Tech; Complete Time: 17:35 kb 10/01 17:12 Order name: Urine Microscopic Only; Complete Time: 17:50 kb 10/01 17:12 Order name: CBC with Diff; Complete Time: 18:07 kb 10/01 17:12 Order name: Basic Metabolic Panel; Complete Time: 18:25 kb 10/01 17:12 Order name: Acetone, Serum; Complete Time: 18:25 kb 10/01 17:34 Order name: Urine Dipstick-Ancillary; Complete Time: 17:35 EDMS 10/01 17:25 Order name: Glucose, Ancillary Testing; Complete Time: 17:33 EDMS 10/01 20:07 Order name: FSBS: please recheck post IVF bolus; Complete Time: 21:17 snw EC:22 Rate is 105 beats/min. Rhythm is regular. QRS Osgood is Normal. MO interval is normal at kb 178 msec. QRS interval is normal at 82 msec. QT interval is normal at 478 msec. Administered Medications: 18:03 Drug: NS 0.9% IV 1000 ml Route: IV; Rate: 1000 ml; Site: left antecubital; [facility] 19:46 Follow up: Response: No adverse reaction pf1 19:50 Follow up: IV Status: Completed infusion; IV Intake: 1000ml pf1 19:03 Drug: Insulin Regular Human IVP 10 units {Co-Signature: ll1 (Terra Solo RN).} Route: bp IVP; Site: right antecubital; 20:00 Follow up: Response: No adverse reaction pf1 19:46 Drug: NS 0.9% IV 1000 ml Route: IV; Rate: 1000 ml; Site: right antecubital; pf1 20:40 Follow up: Response: No adverse reaction; Marked relief of symptoms pf1 Point of Care Testin:11 HI hb Ranges: Critical Glucose Levels:Adult <50 mg/dl or >400 mg/dl <40 mg/dl or >180 mg/dl Disposition Summary: 10/01/22 21:23 Discharge Ordered Location: Home snw Condition: Stable snw Diagnosis - Diabetes mellitus due to underlying condition with hyperglycemia snw Followup: snw - With: Emergency Department - When: As needed - Reason: Worsening of condition Followup: snw - With: Tony Rubio MD - When: 2 - 3 days - Reason: Recheck today's complaints, Continuance of care, Re-evaluation by your physician Discharge Instructions: - Discharge Summary Sheet snw - Diabetes Mellitus and Sick Day Management snw - Hyperglycemia snw - Daily Diabetes Mellitus Record snw - Blood Glucose Monitoring, Adult snw Forms: - Medication Reconciliation Form snw - Thank You Letter snw - Antibiotic Education snw - Prescription Opioid Use snw Signatures: Dispatcher [employer] EDMS Keri Van, FOUNDER-C FOUNDER-Ckb Micaela Murray, FOUNDER-C FOUNDER-Csnw Karen Max, RN RN Magan Juares RN RN Terra Dimas, RN RN ll1 Constanza combs RN RN pf1 Terra Solo RN ll1
--- NOTE | 2022-10-01 21:23 | ER ---
Nurse's Notes [facility] Name: Kandace Chery Age: 67 yrs Sex: Female : 1955 Arrival Date: 10/01/2022 Time: 17:05 Bed 3 Private MD: Tony Rubio E Diagnosis: Diabetes mellitus due to underlying condition with hyperglycemia Presentation: 10/01 17:11 Chief complaint: Home BGL >500 today, took Tresiba 78 units 2 hours ago. Coronavirus hb screen: At this time, the client does not indicate any symptoms associated with coronavirus-19. Ebola Screen: No symptoms or risks identified at this time. Risk Assessment: Do you want to hurt yourself or someone else? Patient reports no desire to harm self or others. Onset of symptoms was October 01, 2022. 17:11 Method Of Arrival: Ambulatory hb 17:11 Acuity: SHAILA 2 hb 18:16 Initial Sepsis Screen: Does the patient meet any 2 criteria? No. Patient's initial ll1 sepsis screen is negative. Does the patient have a suspected source of infection? No. Patient's initial sepsis screen is negative. Triage Assessment: 17:16 General: Appears in no apparent distress. comfortable, obese, Behavior is calm, bp cooperative, appropriate for age. Pain: Denies pain. EENT: No deficits noted. Neuro: No deficits noted. Cardiovascular: Rhythm is sinus tachycardia. Respiratory: No deficits noted. GI: No signs and/or symptoms were reported involving the gastrointestinal system. : No signs and/or symptoms were reported regarding the genitourinary system. Derm: No deficits noted. Musculoskeletal: No deficits noted. Historical: - Allergies: 17:12 Hydrocodone-Acetaminophen; hb 17:12 Sulfa (Sulfonamide Antibiotics); hb - PMHx: 17:12 cirrhosis of liver; diabetes mellitus; Hypertensive disorder; kidney disease; hb - PSHx: 17:12 Cholecystectomy; hysterectomy; right knee; hb - Immunization history:: Adult Immunizations up to date. - Social history:: Smoking status: Patient denies any tobacco usage or history of. Screenin:16 [facility] ED Fall Risk Assessment (Adult) History of falling in the last 3 months, bp including since admission No falls in past 3 months (0 pts). Abuse screen: Denies threats or abuse. Denies injuries from another. Nutritional screening: No deficits noted. Tuberculosis screening: No symptoms or risk factors identified. Assessment: 17:16 General: SEE TRIAGE NOTE. bp 18:00 Reassessment: No changes from previously documented assessment. Patient and/or family ll1 updated on plan of care and expected duration. Pain level reassessed. Patient is alert, oriented x 3, equal unlabored respirations, skin warm/dry/pink. 18:16 Reassessment: No changes from previously documented assessment. Patient and/or family ll1 updated on plan of care and expected duration. Pain level reassessed. Patient is alert, oriented x 3, equal unlabored respirations, skin warm/dry/pink. 18:24 Reassessment: VERONICA Saavedra notified of critical lab value, glucose. ss 19:00 General: Appears in no apparent distress. comfortable, obese, well groomed, well pf1 developed, Behavior is calm, cooperative, appropriate for age, quiet. 19:00 Pain: Denies pain. Neuro: No deficits noted. Level of Consciousness is awake, alert, pf1 obeys commands, Oriented to person, place, time, situation. Cardiovascular: No deficits noted. Capillary refill < 3 seconds Patient's skin is warm and dry. Respiratory: No deficits noted. Airway is patent Trachea midline Respiratory effort is even, unlabored, Respiratory pattern is regular, symmetrical. GI: No deficits noted. Abdomen is round non-distended, Bowel sounds present X 4 quads. Abd is soft and non tender X 4 quads. : No deficits noted. No signs and/or symptoms were reported regarding the genitourinary system. EENT: No deficits noted. No signs and/or symptoms were reported regarding the EENT system. Derm: No deficits noted. No signs and/or symptoms reported regarding the dermatologic system. 19:08 Reassessment: No changes from previously documented assessment. Patient and/or family ll1 updated on plan of care and expected duration. Pain level reassessed. Patient is alert, oriented x 3, equal unlabored respirations, skin warm/dry/pink. 20:00 Reassessment: Patient appears in no apparent distress at this time. No changes from pf1 previously documented assessment. Patient and/or family updated on plan of care and expected duration. Pain level reassessed. Patient is alert, oriented x 3, equal unlabored respirations, skin warm/dry/pink. Patient states symptoms have improved. 21:16 General: FSBGL 251. pf1 Vital Signs: 17:11 BP 152 / 80; Pulse 102; Resp 18; Temp 98.3; Pulse Ox 100% on R/A; Weight 81.65 kg; hb Height 4 ft. 11 in. ; Pain 0/10; 18:19 BP 144 / 59; Pulse 95; Resp 18; Pulse Ox 95% on R/A; ll1 19:00 BP 155 / 71; Pulse 91; Resp 20; Pulse Ox 98% on R/A; Pain 0/10; pf1 20:00 BP 152 / 72; Pulse 89; Resp 20; Pulse Ox 98% on R/A; Pain 0/10; pf1 17:11 Body Mass Index 36.36 (81.65 kg, 149.86 cm) hb 17:11 Pain Scale: Adult hb 19:00 Pain Scale: Adult pf1 20:00 Pain Scale: Adult pf1 ED Course: 17:05 Patient arrived in ED. mr 17:05 Tony Rubio MD is Private Physician. mr 17:08 Keri Van FNP-C is PHCP. kb 17:08 Geovany Marques MD is Attending Physician. kb 17:12 Triage completed. hb 17:12 Arm band placed on. hb 17:14 Magan Juares, MARISA is Primary Nurse. bp 17:16 Patient has correct armband on for positive identification. Bed in low position. Call bp light in reach. Side rails up X2. 17:46 Inserted saline lock: 22 gauge in left antecubital area, using aseptic technique. Blood ll1 collected. 18:00 Primary Nurse role handed off by Magan Juares, MARISA ll1 18:00 Terra Solo, MARISA is Primary Nurse. ll1 18:43 intact, bleeding controlled, site infiltrated, + swollen. Warm packs applied to site. ll1 18:44 Missed attempt(s): 22 gauge in left hand. Bleeding controlled, band aid applied, ll1 catheter tip intact. 18:52 Inserted saline lock: 22 gauge in right antecubital area, using aseptic technique. bp 19:40 PHCP role handed off by Keri Van FNP-C snw 19:40 Micaela Murray FNP-C is PHCP. snw 21:17 No provider procedures requiring assistance completed. pf1 21:22 Tony Rubio MD is Referral Physician. snw Administered Medications: 18:03 Drug: NS 0.9% IV 1000 ml Route: IV; Rate: 1000 ml; Site: left antecubital; ll1 19:46 Follow up: Response: No adverse reaction pf1 19:50 Follow up: IV Status: Completed infusion; IV Intake: 1000ml pf1 19:03 Drug: Insulin Regular Human IVP 10 units {Co-Signature: james (Terra Solo RN).} Route: bp IVP; Site: right antecubital; 20:00 Follow up: Response: No adverse reaction pf1 19:46 Drug: NS 0.9% IV 1000 ml Route: IV; Rate: 1000 ml; Site: right antecubital; pf1 20:40 Follow up: Response: No adverse reaction; Marked relief of symptoms pf1 Medication: 17:16 VIS not applicable for this client. bp Point of Care Testin:11 HI hb Ranges: Intake: 19:50 IV: 1000ml; Total: 1000ml. pf1 Outcome: 21:23 Discharge ordered by . snw Signatures: Keri Van, PLATE SHEAR OPERATOR-C PLATE SHEAR OPERATOR-Ckb Murray Micaela, PLATE SHEAR OPERATOR-C PLATE SHEAR OPERATOR-Csnw Renita Romero mr Inga Calero RN RN Karen Max, RN MARISA Magan Juares, RN RN bp Terra Solo RN RN ll1 Constanza combs RN RN pf1 Terra Solo RN ll1
[2022-10-02 01:30] VITALS: BP 147/76; TEMP 98.9; O2SAT 97
--- NOTE | 2022-10-04 17:41 | EKG ---
Test Date: 2022-10-01 Test Time: 17:44:39 Graphic Design Assistant: PETROS MEASUREMENT RESULTS: Intervals: Rate: 103 [place]: 188 QRSD: 82 QT: 372 QTc: 487 [place]: P: 47 [place]: 188 QRS: -16 T: 42 INTERPRETIVE STATEMENTS: Sinus tachycardia Anterolateral infarct, age undetermined Abnormal ECG Compared to ECG 10/01/2022 17:43:54 Ventricular premature complex(es) no longer present Myocardial infarct finding still present Electronically Signed On 10-04-22 17:36:44 CDT by Vimal Villalba
--- NOTE | 2022-10-04 17:41 | EKG ---
Test Date: 2022-10-01 Test Time: 17:43:54 [place] Worker: PETROS MEASUREMENT RESULTS: Intervals: Rate: 105 [place]: 178 QRSD: 82 QT: 362 QTc: 478 [place]: P: 44 [place]: 178 QRS: -16 T: 32 INTERPRETIVE STATEMENTS: Sinus tachycardia with occasional premature ventricular complexes Anterolateral infarct, age undetermined Abnormal ECG Compared to ECG 02/05/2021 09:55:27 Ventricular premature complex(es) now present Myocardial infarct finding now present Sinus rhythm no longer present Electronically Signed On 10-04-22 17:36:47 CDT by Vimal Villalba
== END 2022-10-01 21:53 | disposition home or self-care (01) ==
LOC: ER 17:02
DX: E11.22 Type 2 diabetes mellitus with diabetic chronic kidney disease (principal); N18.9 Chronic kidney disease, unspecified; E11.65 Type 2 diabetes mellitus with hyperglycemia; Z88.2 Allergy status to sulfonamides; Z88.5 Allergy status to narcotic agent
CPT/HCPCS: 96361; 85025; 80048; 36415; 82010; 82947 ×2; 96374; 99284; J1815; J7030 ×2; 81003; 81015; 93005